=== PATIENT | female | born 1980 | race Caucasian/White ===

== ENCOUNTER 2019-06-15 14:23 | Emergency (ER) | payer OTHER, SELFPAY ==
[2019-06-15 14:41] VITALS: BP 138/96; PULSE 50; RESP 16; TEMP 36.4; O2SAT 100
--- NOTE | 2019-06-15 14:52 | ED.ABDPAIN ---
HPI - Abdominal Pain General Chief Complaint: Abdominal Pain Stated Complaint: Abdominal pain Time Seen by Provider: 06/15/19 14:40 Source: patient Mode of arrival: EMS Limitations: no limitations History of Present Illness HPI narrative: Patient is a 38-year-old female here for evaluation of abdominal pain. She states she has had abdominal pain like this on and off for several months now. She has not seen her primary doctor and has not seen a GI doctor regarding this. She states that initially she thought that was stressed induced. She has had quite a bit of stress in her life recently because her mother is just . She states the symptoms have been worsening over the past week and then especially worsening over the past 3 days with a large increase in the pain over the past 24 hours. States she feels nauseous but is unable to vomit. She states that she feels like she needs to have a bowel movement however does not. No blood in her stool. No prior abdominal surgeries. Has not tried anything for symptoms prior to arrival. No recent antibiotics. No recent travel. No recent camping. Related Data Previous Rx's Medication Instructions Recorded ciprofloxacin HCl 500 mg PO BID 10 Days #20 tab 06/15/19 metronidazole [Flagyl] 500 mg PO TID 10 Days #30 tab 06/15/19 ondansetron 4 mg PO Q6H PRN #14 tab 06/15/19 Allergies Allergy/AdvReac Type Severity Reaction Status Date / Time No Known Drug Allergies Allergy Verified 06/15/19 15:14 Review of Systems Constitutional Constitutional: Denies fatigue and Denies fever(s) Cardiovascular Cardiovascular: Denies chest pain and Denies dyspnea Respiratory Respiratory: Denies dyspnea Gastrointestinal Gastrointestinal: Reports abdominal pain, Reports change in bowel habits, Reports nausea and Denies vomiting Genitourinary Genitourinary: Denies dysuria, Denies flank pain and Denies vaginal discharge Musculoskeletal Musculoskeletal: Denies myalgias and Denies arthralgias Integumentary/Breasts Skin/Breast: Denies rash Neurologic Neurologic: Denies behavioral changes Psychiatric Psychiatric: Reports anxiety and Denies behavioral changes Endocrine Endocrine: Denies fatigue Hematologic/Lymphatic Hematologic/Lymphatic: Denies easy bleeding and Denies easy bruising PFSH Medical History Patient denies medical problems (Inactive) Social History Smoking Status: Former smoker Social History Smoking Status: Former smoker Exam Initial Vital Signs Initial Vital Signs: Vital Signs Temperature 97.6 F 06/15/19 14:41 Pulse Rate 50 L 06/15/19 14:41 Respiratory Rate 16 06/15/19 14:41 Blood Pressure 138/96 H 06/15/19 14:41 Pulse Oximetry 100 06/15/19 14:41 Const General: cooperative, comfortable, well developed and well groomed Orientation: alert, awake and oriented x3 HENMT Head: normal to inspection and normocephalic Resp Effort & Inspection: normal respiratory effort Auscultation: clear to auscultation bilaterally Cardio Rate: regular rate Rhythm: regular rhythm GI Inspection: non-distended Palpation: soft, No firm, No guarding, No rigid and tender (Diffuse tenderness) Back/Spine/Pelvis Back: No CVA tenderness Skin Lesions: no lesions Rashes: no rashes Neuro General: alert and awake Cognition: normal cognition Speech: speech normal Extrem General: normal to inspection and capillary refill normal Psych Appearance: grossly normal and well kempt Course Orders Ordered: ED Orders 06/15/19 13:43 Urine Microscopic Stat 06/15/19 14:55 CT abdomen pelvis w con Stat 06/15/19 15:02 Complete Blood Count AUTO DIFF Stat Comprehensive Metabolic Panel Stat Lipase Stat 06/15/19 15:20 EKG-12 Lead Stat Discontinued Medications Sodium Chloride (Normal Saline 0.9%) 1,000 mls @ 1,000 mls/hr IV BOLUS ONE Stop: 06/15/19 15:52 Last Infusion: 06/15/19 16:49 Dose: 0 mls/hr Documented by: Admin: 06/15/19 15:14 Dose: 1,000 mls/hr Documented by: DEBBIE Morphine Sulfate (Morphine) 4 mg IV NOW ONE Stop: 06/15/19 14:54 Last Admin: 06/15/19 15:14 Dose: 4 mg Documented by: DEBBIE Ondansetron HCl (Zofran) 4 mg IV NOW ONE Stop: 06/15/19 14:54 Last Admin: 06/15/19 15:15 Dose: 4 mg Documented by: DEBBIE Ondansetron HCl (Zofran) 4 mg IV NOW ONE Stop: 06/15/19 16:41 Last Admin: 06/15/19 16:48 Dose: 4 mg Documented by: SHEA Vital Signs Vital signs: Vital Signs - 8 hr 06/15/19 14:41 06/15/19 16:03 06/15/19 17:30 Temperature 97.6 F Pulse Rate 50 L 64 60 Respiratory Rate 16 14 14 Blood Pressure 138/96 H Blood Pressure [Left Arm] 130/81 152/88 H Pulse Oximetry 100 98 98 06/15/19 17:32 Temperature Pulse Rate 71 Respiratory Rate 15 Blood Pressure Blood Pressure [Left Arm] 139/92 H Pulse Oximetry 97 MDM - Abdominal Pain Medical Records Attestation: I reviewed the patient's medical records. Lab Data Attestation: I reviewed the patient's lab results. Result diagrams: 06/15/19 15:02 06/15/19 15:02 Labs: Lab Results 06/15/19 06/15/19 06/15/19 Range/Units 13:43 15:02 15:02 WBC 7.2 (4.5-11.0) X10^3/uL RBC 4.43 (4.0-5.2) X10^6/uL Hgb 14.4 (12.0-16.0) g/dL Hct 41.6 (36-46) % MCV 93.8 (80-100) fL MCH 32.6 (26-34) PG MCHC 34.8 (30-36) % RDW 11.9 (11.6-14.8) % Plt Count 375 (150-400) X10^3/uL Neut % (Auto) 72.9 (50-75) % Lymph % (Auto) 21.2 L (25-40) % [place]enson % (Auto) 4.5 (3-14) % Eos % (Auto) 0.8 L (2-4) % Baso % (Auto) 0.6 (0-2) % Neut # (Auto) 5200 (6503-1991) /uL Lymph # (Auto) 1500 (4749-9370) /uL Dickenson # (Auto) 300 (0-900) /uL Eos # (Auto) 100 (0-450) /uL Baso # (Auto) 0 (0-100) /uL Sodium 141 (137-145) mmol/L Potassium 3.5 (3.4-5.1) mmol/L Chloride 108 H (98-107) mmol/L Carbon Dioxide 21 L (22-32) mmol/L BUN 13 (7-17) mg/dL Creatinine 0.70 (0.52-1.04) mg/dL Estimated GFR > 60.0 (>60) mL/min BUN/Creatinine Ratio 18.6 (6-22) Glucose 106 H (70-100) mg/dL Calcium 10.0 (8.4-10.2) mg/dL Total Bilirubin 0.9 (0.2-1.3) mg/dL AST 14 (14-36) IU/L ALT 10 (9-52) IU/L Alkaline Phosphatase 68 (38-126) U/L Total Protein 7.6 (6.3-8.2) g/dL Albumin 4.6 (3.5-5.0) g/dL Globulin 3.0 (1.7-4.1) g/dL Albumin/Globulin Ratio 1.5 (1.0-2.8) Lipase 141 (23-300) U/L Urine RBC None seen (0-5/HPF) Urine WBC None seen (0-5/HPF) Ur Squamous Epith Cells None seen (0-5/HPF) Urine Bacteria None seen (None) Urine Yeast 0-1/hpf (None) Ur Culture Indicated? Cult not indicated Point of care testing: Point of Care Testing Test Results Negative Urine Dip Bedside Urine Glucose Negative Bedside Urine Bilirubin - Negative Bedside Urine Ketone ++ 40 Urine Specific [place] 1.010 Bedside Urine Occult Blood - Negative Bedside Urine pH 7.5 Bedside Urine Protein - Negative Bedside Urine Urobilinogen - Negative Bedside Urine Nitrite - Negative Bedside Urine Leukocytes - Negative Esterase Imaging Data CT scan - abdomen: Radiologist's impression: Claribel Gonsalesa 38 F [address] [address] [address] Scan Report Signed Patient: Lashay GonsalesDonte#: [id number] : 1980Acct:[id number] Age/Sex: 38 / FDate of Service: 06/15/19 Loc: ED Accession Number: [id number] Procedure: CT abdomen pelvis w con Ordering Provider: Cristobal Olson D.O. PROCEDURE: CT ABDOMEN PELVIS W CON INDICATIONS: generalized abdominal pain TECHNIQUE: After the administration of intravenous contrast, 5 mm thick sections acquired from the diaphragm to the symphysis. 5 mm coronal and sagittal reformats were acquired. For radiation dose reduction, the following was used: automated exposure control, adjustment of mA and/or kV according to patient size. COMPARISON: None. FINDINGS: Image quality: Excellent. ABDOMEN: Lung bases: Lung bases are clear. Heart size is normal. Solid organs: Liver is normal in size and enhancement. Gallbladder wall is not thickened. Biliary system is non dilated. Pancreas enhances normally. The pancreatic duct is visualized and is at the upper limits of normal at 3 mm. No peripancreatic inflammatory changes are seen. Spleen is normal in size and enhancement. No adrenal nodules. Kidneys demonstrate normal size and enhancement, without hydronephrosis. Peritoneum and bowel: Generalized wall thickening is seen throughout the colon. No dilated loops of small bowel are seen. No free air is seen. No free fluid is seen layering within the pelvis, which is considered to be within physiologic limits. Incidental note is made of a normal-appearing appendix. Nodes and vessels: No retroperitoneal or mesenteric adenopathy by size criteria. Aorta and inferior vena cava are normal in size. Miscellaneous: No ventral hernias. PELVIS: Genitourinary: Bladder wall thickness is normal. Miscellaneous: No inguinal hernias or adenopathy. Bones: No suspicious bony lesions. No vertebral body compression fractures. Moderate levoconvex scoliotic curvature is noted. IMPRESSION: Generalized wall thickening is seen in the colon. Please correlate with potential infectious or inflammatory causes of colitis. Ischemia is considered to be highly unlikely, given the age of the patient and the distribution. Incidental note is made of: Moderate levoconvex scoliosis Normal appendix Dictated by: Evaristo Harman M.D. on 06/15/2019 at 15:54 Approved by: Evaristo Harman M.D. on 06/15/2019 at 15:57 ECG Data Attestation: I personally reviewed and interpreted this ECG as follows: Prior ECG tracings: not available for review Interpretation: Sinus rhythm Ventricular rate is 69 Normal QRS Normal QTC No ST T wave changes MDM Narrative Medical decision making narrative: Patient has had symptoms off and on for at least the past several months. She has colitis on her CT scan today. This could potentially be inflammatory in nature however given the severity of her symptoms and the length of her symptoms I feel that a course of antibiotics to see whether not this does not resolve her symptoms is warranted. This may also help with future workup with her primary doctor in potentially a GI doctor. I informed her that she does need to follow up with her primary doctor need to discuss the indications for referral to see GI and also the indications for referral to have a colonoscopy. I also suspect that her symptoms may be stress/anxiety induced. Low suspicion for ischemic changes. Will send home with symptom treatment. She was given return precautions and follow-up instructions. She expressed understanding and agreement plan. Discharge Plan Departure Patient Disposition: Home Clinical Impression: Colitis Discharge Date/Time: 06/15/19 17:44 Instructions: DI for Colitis Activity Restrictions/Additional Instructions: Take the medications as directed. Recommend that you continue the rest of your medications. Eat a bland diet and be sure to stay hydrated. Contact your primary provider to discuss the indications for referral to have a colonoscopy. Return to the emergency department for any new or worsening symptoms Prescriptions: New ondansetron 4 mg tablet,disintegrating 4 mg PO Q6H PRN (Reason: nausea and vomiting) Qty: 14 RF: 0 ciprofloxacin HCl 500 mg tablet 500 mg PO BID 10 Days Qty: 20 RF: 0 metronidazole [Flagyl] 500 mg tablet 500 mg PO TID 10 Days Qty: 30 RF: 0
--- NOTE | 2019-06-15 14:55 | DI.CT.S_ITS ---
PROCEDURE: CT ABDOMEN PELVIS W CON INDICATIONS: generalized abdominal pain TECHNIQUE: After the administration of intravenous contrast, 5 mm thick sections acquired from the diaphragm to the symphysis. 5 mm coronal and sagittal reformats were acquired. For radiation dose reduction, the following was used: automated exposure control, adjustment of mA and/or kV according to patient size. COMPARISON: None. FINDINGS: Image quality: Excellent. ABDOMEN: Lung bases: Lung bases are clear. Heart size is normal. Solid organs: Liver is normal in size and enhancement. Gallbladder wall is not thickened. Biliary system is non dilated. Pancreas enhances normally. The pancreatic duct is visualized and is at the upper limits of normal at 3 mm. No peripancreatic inflammatory changes are seen. Spleen is normal in size and enhancement. No adrenal nodules. Kidneys demonstrate normal size and enhancement, without hydronephrosis. Peritoneum and bowel: Generalized wall thickening is seen throughout the colon. No dilated loops of small bowel are seen. No free air is seen. No free fluid is seen layering within the pelvis, which is considered to be within physiologic limits. Incidental note is made of a normal-appearing appendix. Nodes and vessels: No retroperitoneal or mesenteric adenopathy by size criteria. Aorta and inferior vena cava are normal in size. Miscellaneous: No ventral hernias. PELVIS: Genitourinary: Bladder wall thickness is normal. Miscellaneous: No inguinal hernias or adenopathy. Bones: No suspicious bony lesions. No vertebral body compression fractures. Moderate levoconvex scoliotic curvature is noted. IMPRESSION: Generalized wall thickening is seen in the colon. Please correlate with potential infectious or inflammatory causes of colitis. Ischemia is considered to be highly unlikely, given the age of the patient and the distribution. Incidental note is made of: Moderate levoconvex scoliosis Normal appendix Dictated by: Evaristo Harman M.D. on 06/15/2019 at 15:54 Approved by: Evaristo Harman M.D. on 06/15/2019 at 15:57
[2019-06-15] MEDS: MORPHINE 4 MG/ML INJ IV (15:14)
[2019-06-15] MEDS: SODIUM CHLORIDE 0.9% 1,000 ML 1000 ML IV (15:14)
[2019-06-15] MEDS: ONDANSETRON 4 MG/2 ML INJ IV ×2 (15:15→16:48)
[2019-06-15 15:18] LABS: Add Manual Diff / Slide Review NO; Basophils Absolute Auto 0 /uL (0-100); Basophils Percent Auto 0.6 % (0-2); Eosinophils Absolute Auto 100 /uL (0-450); Eosinophils Percent Auto 0.8 % (2-4); Hematocrit 41.6 % (36-46); Hemoglobin 14.4 g/dL (12.0-16.0); Lymphocytes Absolute Auto 1500 /uL (1100-4500); Lymphocytes Percent Auto 21.2 % (25-40); Mean Corpuscular HGB Conc 34.8 % (30-36); Mean Corpuscular Hemoglobin 32.6 PG (26-34); Mean Corpuscular Volume 93.8 fL (80-100); Monocytes Absolute Auto 300 /uL (0-900); Monocytes Percent Auto 4.5 % (3-14); Neutrophils Absolute Auto 5200 /uL (1500-7000); Neutrophils Percent Auto 72.9 % (50-75); Platelet Count 375 X10^3/uL (150-400); Red Blood Cell Count 4.43 X10^6/uL (4.0-5.2); Red Cell Distribution Width 11.9 % (11.6-14.8); White Blood Cell Count 7.2 X10^3/uL (4.5-11.0)
[2019-06-15 15:30] LABS: Alanine Aminotransferase 10 IU/L (9-52); Albumin 4.6 g/dL (3.5-5.0); Albumin Globulin Ratio 1.5 (1.0-2.8); Alkaline Phosphatase 68 U/L (38-126); Aspartate Aminotransferase 14 IU/L (14-36); BUN Creatinine Ratio 18.6 (6-22); Bilirubin Total 0.9 mg/dL (0.2-1.3); Blood Urea Nitrogen 13 mg/dL (7-17); Carbon Dioxide 21 mmol/L (22-32); Chloride 108 mmol/L (98-107); Estimated Glomerular Filt Rate > 60.0 mL/min (>60); Glucose 106 mg/dL (70-100); HEMOLYSIS < 15 (0-50); Lipase 141 U/L (23-300); Potassium 3.5 mmol/L (3.4-5.1); Sodium 141 mmol/L (137-145); Total Protein 7.6 g/dL (6.3-8.2)
[2019-06-15 16:01] LABS: Bacteria Urine None Seen; RBC Urine None Seen (0-5/HPF); WBC Urine None Seen (0-5/HPF)
[2019-06-15 16:03] VITALS: BP 130/81; PULSE 64; RESP 14; O2SAT 98
[2019-06-15 16:21] LABS: Culture Indicated Urine Cult Not Indicated; Squamous Epithelial Cell Urine None Seen (0-5/HPF)
[2019-06-15 17:30] VITALS: BP 152/88; PULSE 60; RESP 14; O2SAT 98
[2019-06-15 17:32] VITALS: BP 139/92; PULSE 71; RESP 15; O2SAT 97
== END 2019-06-15 17:44 | disposition home or self-care (01) ==
PROVIDERS: Emergency Provider Emergency Medicine
DX: K52.9 Noninfective gastroenteritis and colitis, unspecified (principal)
CPT/HCPCS: 36415; 74177; 80053; 81003; 81015; 81025; 83690; 85025; 93005; 96361; 96374; 96375; 96376; 99283; 99285; J2270; J2405; Q9967

== ENCOUNTER 2019-06-24 19:17 | Emergency (ER) | payer OTHER, SELFPAY ==
[2019-06-24 19:25] VITALS: PULSE 100; RESP 18; TEMP 37.2; O2SAT 100; BMI 20.7
[2019-06-24 19:49] LABS: RBC Urine None Seen (0-5/HPF)
[2019-06-24 19:55] LABS: Bacteria Urine Many (>30); Culture Indicated Urine Cult Not Indicated; Squamous Epithelial Cell Urine 10-30 /HPF (0-5/HPF); WBC Urine 5-10/HPF (0-5/HPF)
[2019-06-24 20:08] LABS: INR 1.1 (0.9-1.3); Prothrombin Time 12.5 SECONDS (10.1-12.7)
[2019-06-24] MEDS: ONDANSETRON 4 MG/2 ML INJ IV ×2 (20:08→22:28)
[2019-06-24 20:11] LABS: Add Manual Diff / Slide Review NO; Basophils Absolute Auto 100 /uL (0-100); Basophils Percent Auto 0.5 % (0-2); Eosinophils Absolute Auto 0 /uL (0-450); Eosinophils Percent Auto 0.2 % (2-4); Hematocrit 42.3 % (36-46); Hemoglobin 14.8 g/dL (12.0-16.0); Lymphocytes Absolute Auto 1200 /uL (1100-4500); Lymphocytes Percent Auto 11.1 % (25-40); Mean Corpuscular Hemoglobin 32.9 PG (26-34); Mean Corpuscular Volume 94.2 fL (80-100); Monocytes Absolute Auto 400 /uL (0-900); Monocytes Percent Auto 3.7 % (3-14); Neutrophils Absolute Auto 9400 /uL (1500-7000); Neutrophils Percent Auto 84.5 % (50-75); PTT Partial Thromboplastin Tim 32 SECONDS (26.4-36.2); Platelet Count 373 X10^3/uL (150-400); Red Blood Cell Count 4.49 X10^6/uL (4.0-5.2); White Blood Cell Count 11.1 X10^3/uL (4.5-11.0)
[2019-06-24 20:12] LABS: Alanine Aminotransferase 18 IU/L (9-52); Albumin 4.6 g/dL (3.5-5.0); Albumin Globulin Ratio 1.7 (1.0-2.8); Alkaline Phosphatase 63 U/L (38-126); Aspartate Aminotransferase 25 IU/L (14-36); BUN Creatinine Ratio 7.5 (6-22); Bilirubin Total 0.8 mg/dL (0.2-1.3); Blood Urea Nitrogen 6 mg/dL (7-17); Calcium 10.1 mg/dL (8.4-10.2); Carbon Dioxide 18 mmol/L (22-32); Chloride 106 mmol/L (98-107); Estimated Glomerular Filt Rate > 60.0 mL/min (>60); Globulin 2.7 g/dL (1.7-4.1); Glucose 102 mg/dL (70-100); HEMOLYSIS < 15 (0-50); Lipase 117 U/L (23-300); Potassium 3.6 mmol/L (3.4-5.1); Sodium 140 mmol/L (137-145); Total Protein 7.3 g/dL (6.3-8.2)
[2019-06-24] MEDS: SODIUM CHLORIDE 0.9% 1,000 ML 1000 ML IV (20:15)
--- NOTE | 2019-06-24 20:20 | ED_ITS ---
HPI - Abdominal Pain General Chief Complaint: Abdominal Pain Stated Complaint: stomach pains, throwing up Time Seen by Provider: 06/24/19 20:17 Source: patient and old records reviewed Mode of arrival: ambulatory Limitations: no limitations History of Present Illness HPI narrative: This is a 38-year-old female comes in with complaint of abdominal pain. Patient states that she has been having symptoms for at least a couple weeks. She states she has had some abdominal discomfort for maybe a couple months since her mother but she thought it was a nervous stomach. About 48 hours before June 15 she had increasing pain with seen here in the emergency department and diagnosed with colitis on CT imaging. Since then her pain is been maybe a little bit more dulled Um. She has been having some mild nausea but taking Zofran and taking Cipro and Flagyl daily. She states over the last 12 hours her pain has increased significantly. She had multiple episodes of vomiting, she complains of sort of generalized pain with no real localized area of discomfort. She has complained of 2 episodes of copious diarrhea but denies any bright red blood or melena. She denies any dysuria frequency urgency or difficulty with urination. She has had sort of shaking chills intermittently. She has a history of migraines, denies any other past surgical history no allergies to medications denies any tobacco alcohol, states she uses marijuana , denies other illict. She lives on [address] with her and son. Related Data Previous Rx's Medication Instructions Recorded ciprofloxacin HCl 500 mg PO BID 10 Days #20 tab 06/15/19 metronidazole [Flagyl] 500 mg PO TID 10 Days #30 tab 06/15/19 ondansetron 4 mg PO Q6H PRN #14 tab 06/15/19 hydrocodone-acetaminophen [Carlisle] 1 tab PO Q6H PRN #5 tab 06/24/19 ondansetron HCl [Zofran] 4 mg PO QID PRN #5 tab 06/24/19 Allergies Allergy/AdvReac Type Severity Reaction Status Date / Time No Known Drug Allergies Allergy Verified 06/15/19 15:14 Review of Systems Review of Systems ROS Unobtainable: All systems reviewed & are unremarkable except as noted in HPI and below Constitutional Constitutional: Reports chills, Denies fever(s), Denies lethargy, Reports malaise and Denies weakness Cardiovascular Cardiovascular: Denies chest pain and Denies dyspnea Respiratory Respiratory: Denies dyspnea Gastrointestinal Gastrointestinal: Reports abdominal pain, Denies melena, Denies hematochezia, Re ports change in bowel habits, Reports change in stool character, Reports diarrhea, Reports nausea and Reports vomiting Genitourinary Genitourinary: Denies hematuria, Denies urinary frequency, Denies dysuria, Denies flank pain, Denies urinary incontinence, Denies urinary hesitancy and De nies urinary urgency Musculoskeletal Musculoskeletal: Denies back pain Integumentary/Breasts Skin/Breast: Denies rash Neurologic Neurologic: Denies weakness [facility] Medical History (Updated 06/24/19 @ 22:07 by Nayely Blair DO) Migraines (Acute) Patient denies medical problems (Inactive) Social History (Updated 06/24/19 @ 21:05 by Nayely Blair DO) marital status: details: Lives [facility] household members: spouse and children Smoking Status: Former smoker alcohol intake: current substance use type: marijuana Social History (Updated 06/24/19 @ 21:05 by Nayely Blair DO) marital status: details: Lives [facility] household members: spouse and children Smoking Status: Former smoker alcohol intake: current substance use type: marijuana Exam Narrative Exam Narrative: GENERAL: Alert and oriented x three, thin, well-appearing female in moderate distress. HEENT: Head normocephalic, atraumatic, EOMI, pupils reactive, face symmetric, moist mucous membranes NECK: Supple, full range of motion CARDIOVASCULAR: Regular rate and rhythm without murmurs, rubs or gallops. RESPIRATORY: Breath sounds equal bilaterally, no wheezes rales or rhonchi. ABDOMEN: Soft, generalized tenderness. Slightly increased in left upper quadrant but this is minimally increased. Normoactive bowel sounds all 4 quadrants. No guarding or rebound, rigidity, no mass. : No right CVA tenderness, very mild left CVA tenderness EXTREMITIES: Normal range of motion, no clubbing or edema. Neurovascularly intact NEUROLOGICAL: Cranial nerves II through XII grossly intact. Moving all extremities SKIN: Warm, dry, no petechiae, no rashes or lesions. Initial Vital Signs Initial Vital Signs: Vital Signs Temperature 98.9 F 06/24/19 19:25 Pulse Rate 100 H 06/24/19 19:25 Respiratory Rate 18 06/24/19 19:25 Pulse Oximetry 100 06/24/19 19:25 Course Orders Ordered: ED Orders 06/24/19 19:40 Urine Microscopic Stat 06/24/19 19:54 Complete Blood Count AUTO DIFF Stat Comprehensive Metabolic Panel Stat Lipase Stat Partial Thromboplastin Time Stat Prothrombin Time INR Stat 06/24/19 19:58 EKG-12 Lead Stat 06/24/19 20:38 CT abdomen pelvis w con Stat Discontinued Medications Hydrocodone Bitart/Acetaminophen (Vicodin Prepack) 1 bottle MISC SEEINSTR ONE Stop: 06/24/19 22:19 Last Admin: 06/24/19 22:28 Dose: 1 bottle Documented by: CHRISTIANE Sodium Chloride (Normal Saline 0.9%) 1,000 mls @ 1,000 mls/hr IV BOLUS ONE Stop: 06/24/19 21:47 Last Infusion: 06/24/19 21:17 Dose: 0 mls/hr Documented by: Admin: 06/24/19 20:15 Dose: 1,000 mls/hr Documented by: CHRISTIANE Ketorolac Tromethamine (Toradol) 30 mg IV NOW ONE Stop: 06/24/19 20:39 Last Admin: 06/24/19 20:53 Dose: 30 mg Documented by: CHRISTIANE Morphine Sulfate (Morphine) 4 mg IV NOW ONE Stop: 06/24/19 21:33 Last Admin: 06/24/19 21:36 Dose: 4 mg Documented by: CHRISTIANE Morphine Sulfate (Morphine) 4 mg IM NOW ONE Stop: 06/24/19 22:18 Last Admin: 06/24/19 22:30 Dose: Not Given Documented by: CHRISTIANE Morphine Sulfate (Morphine) 4 mg IV NOW ONE Stop: 06/24/19 22:30 Last Admin: 06/24/19 22:30 Dose: 4 mg Documented by: CHRISTIANE Ondansetron HCl (Zofran) 4 mg IV NOW ONE Stop: 06/24/19 19:59 Last Admin: 06/24/19 20:08 Dose: 4 mg Documented by: CHRISTIANE Ondansetron HCl (Zofran) 4 mg IV NOW ONE Stop: 06/24/19 22:18 Last Admin: 06/24/19 22:28 Dose: 4 mg Documented by: CHRISTIANE Ondansetron HCl (Zofran Odt Prepack) 1 bottle MISC SEEINSTR ONE Stop: 06/24/19 22:19 Last Admin: 06/24/19 22:28 Dose: 1 bottle Documented by: CHRISTIANE Vital Signs Vital signs: Vital Signs - 8 hr 06/24/19 19:25 06/24/19 21:00 06/24/19 21:37 Temperature 98.9 F Pulse Rate 100 H 90 88 Respiratory Rate 18 20 14 Blood Pressure Blood Pressure [Right Arm] 147/86 H 135/78 Pulse Oximetry 100 100 100 06/24/19 22:00 06/24/19 22:55 Temperature 98.9 F Pulse Rate 89 97 H Respiratory Rate 16 16 Blood Pressure 126/70 Blood Pressure [Right Arm] 139/77 Pulse Oximetry 100 100 MDM - Abdominal Pain Lab Data Attestation: I reviewed the patient's lab results. Result diagrams: 06/24/19 19:54 06/24/19 19:54 Labs: Lab Results 06/24/19 06/24/19 06/24/19 Range/Units 19:40 19:54 19:54 WBC 11.1 H (4.5-11.0) X10^3/uL RBC 4.49 (4.0-5.2) X10^6/uL Hgb 14.8 (12.0-16.0) g/dL Hct 42.3 (36-46) % MCV 94.2 (80-100) fL MCH 32.9 (26-34) PG MCHC 35.0 (30-36) % RDW 12.0 (11.6-14.8) % Plt Count 373 (150-400) X10^3/uL Neut % (Auto) 84.5 H (50-75) % Lymph % (Auto) 11.1 L (25-40) % [place] % (Auto) 3.7 (3-14) % Eos % (Auto) 0.2 L (2-4) % Baso % (Auto) 0.5 (0-2) % Neut # (Auto) 9400 H (4813-1525) /uL Lymph # (Auto) 1200 (3517-5473) /uL [place] # (Auto) 400 (0-900) /uL Eos # (Auto) 0 (0-450) /uL Baso # (Auto) 100 (0-100) /uL PT 12.5 (10.1-12.7) SECONDS INR 1.1 (0.9-1.3) APTT 32 (26.4-36.2) SECONDS Sodium (137-145) mmol/L Potassium (3.4-5.1) mmol/L Chloride (98-107) mmol/L Carbon Dioxide (22-32) mmol/L BUN (7-17) mg/dL Creatinine (0.52-1.04) mg/dL Estimated GFR (>60) mL/min BUN/Creatinine Ratio (6-22) Glucose (70-100) mg/dL Calcium (8.4-10.2) mg/dL Total Bilirubin (0.2-1.3) mg/dL AST (14-36) IU/L ALT (9-52) IU/L Alkaline Phosphatase (38-126) U/L Total Protein (6.3-8.2) g/dL Albumin (3.5-5.0) g/dL Globulin (1.7-4.1) g/dL Albumin/Globulin Ratio (1.0-2.8) Lipase (23-300) U/L Urine RBC None seen (0-5/HPF) Urine WBC 5-10/hpf H (0-5/HPF) Ur Squamous Epith Cells 10-30 /hpf H D (0-5/HPF) Urine Bacteria Many (>30) H (None) Ur Culture Indicated? Cult not indicated 06/24/19 Range/Units 19:54 WBC (4.5-11.0) X10^3/uL RBC (4.0-5.2) X10^6/uL Hgb (12.0-16.0) g/dL Hct (36-46) % MCV (80-100) fL MCH (26-34) PG MCHC (30-36) % RDW (11.6-14.8) % Plt Count (150-400) X10^3/uL Neut % (Auto) (50-75) % Lymph % (Auto) (25-40) % [place] % (Auto) (3-14) % Eos % (Auto) (2-4) % Baso % (Auto) (0-2) % Neut # (Auto) (2332-0199) /uL Lymph # (Auto) (2342-7249) /uL [place] # (Auto) (0-900) /uL Eos # (Auto) (0-450) /uL Baso # (Auto) (0-100) /uL PT (10.1-12.7) SECONDS INR (0.9-1.3) APTT (26.4-36.2) SECONDS Sodium 140 (137-145) mmol/L Potassium 3.6 (3.4-5.1) mmol/L Chloride 106 (98-107) mmol/L Carbon Dioxide 18 L (22-32) mmol/L BUN 6 L (7-17) mg/dL Creatinine 0.80 (0.52-1.04) mg/dL Estimated GFR > 60.0 (>60) mL/min BUN/Creatinine Ratio 7.5 (6-22) Glucose 102 H (70-100) mg/dL Calcium 10.1 (8.4-10.2) mg/dL Total Bilirubin 0.8 (0.2-1.3) mg/dL AST 25 (14-36) IU/L ALT 18 (9-52) IU/L Alkaline Phosphatase 63 (38-126) U/L Total Protein 7.3 (6.3-8.2) g/dL Albumin 4.6 (3.5-5.0) g/dL Globulin 2.7 (1.7-4.1) g/dL Albumin/Globulin Ratio 1.7 (1.0-2.8) Lipase 117 (23-300) U/L Urine RBC (0-5/HPF) Urine WBC (0-5/HPF) Ur Squamous Epith Cells (0-5/HPF) Urine Bacteria (None) Ur Culture Indicated? Point of care testing: Point of Care Testing Test Results Negative Urine Dip Bedside Urine Glucose Negative Bedside Urine Bilirubin - Negative Bedside Urine Ketone +++ 80 Urine Specific [place] 1.015 Bedside Urine Occult Blood - Negative Bedside Urine pH 6.0 Bedside Urine Protein - Negative Bedside Urine Urobilinogen - Negative Bedside Urine Nitrite - Negative Bedside Urine Leukocytes + [address] scan - abdomen: Radiologist's impression: [address] [address] [address] Scan Report Signed Patient: Nubia Gonsales RMR#: [id number] : 1980Acct:[id number] Age/Sex: 38 / FDate of Service: 06/24/19 Loc: ED Accession Number: [id number] Procedure: CT abdomen pelvis w con Ordering Provider: Nayely Blair D.O. PROCEDURE: CT ABDOMEN PELVIS W CON INDICATIONS: abdominal pain worsening, had colitis 06/15/19 TECHNIQUE: After the administration of intravenous contrast, 5 mm thick sections acquired from the diaphragm to the symphysis. 5 mm coronal and sagittal reformats were acquired. For radiation dose reduction, the following was used: automated exposure control, adjustment of mA and/or kV according to patient size. COMPARISON: [facility], CT, CT ABDOMEN PELVIS W CON, 06/15/2019, 16:09. FINDINGS: Image quality: Excellent. ABDOMEN: Lung bases: Lung bases are clear. Heart size is normal. Solid organs: Liver is enlarged with steatosis. Gallbladder is unremarkable. Biliary system is non dilated. Pancreas enhances normally. Spleen is normal in size and enhancement. No adrenal nodules. Kidneys demonstrate normal size and enhancement, without hydronephrosis. Peritoneum and bowel: Bowel loops are nonobstructed. No definitive areas of thickening or inflammatory change are identified.. No free fluid or air. Appendix is unremarkable. Nodes and vessels: No retroperitoneal or mesenteric adenopathy by size criteria. Aorta and inferior vena cava are normal in size. Miscellaneous: Trace fat-containing ventral hernia. PELVIS: Genitourinary: Bladder wall thickness is normal. Involuting suspected hemorrhagic cyst on the left. It is sub-centimeter in size. Miscellaneous: No inguinal hernias or adenopathy. Bones: No suspicious bony lesions. No vertebral body compression fractures. IMPRESSION: 1. Mild hepatomegaly with steatosis. 2. No appreciable areas of colonic thickening or inflammatory change. 3. Appendix is within normal limits. 4. Involuting appearance of likely previous hemorrhagic cyst. Dictated by: Leona Castano M.D. on 06/24/2019 at 21:35 Approved by: Leona Castano M.D. on 06/24/2019 at 21:38 MDM Narrative Medical decision making narrative: Patient comes in with increasing abdominal pain after being on 9 days of oral antibiotics. Patient has had chills but no documented fevers. Heart rate 100, white count is 11 which is increased from her past but not excessively high. Patient's neutrophils are 85%. Her hemogl obin is stable at 14.8, CMP shows a CO2 of 18 reflecting possible acidosis with a low BUN of 6 normal renal function and a glucose of 102 with no other changes to LFTs or lipase. Patient does have leuks but no nitrates in her urine, she does not have any urinary symptoms. CT shows enlarged liver with steatosis bowel loops are not obstructed. No definitive areas of thickening or inflammatory changes identified, no free fluid or air. Appendix is unremarkable no adenopathy by size criteria aorta and inferior vena cava are normal in size. Patient has trace fat containing ventral hernia. Gallbladder wall thickness is normal with involuting suspected hemorrhagic cyst on the left is subcentimeter in size, this may be related some of her symptoms. On recheck patient is Discharge Plan Departure Patient Disposition: Home Clinical Impression: Hepatic steatosis, Hemorrhagic cyst of left ovary Abdominal pain Qualifiers: Abdominal location: generalized Qualified Code(s): R10.84 - Generalized abdominal pain Discharge Date/Time: 06/24/19 22:55 Instructions: DI for Abdominal Pain-Adult Activity Restrictions/Additional Instructions: Follow up with your primary care for recheck in the next 2-3 days. Call for an appointment. Your CT shows improvement of your colitis, hepatic steatosis or fatty liver w hich should be followed by your primary care physician. There is a small fat containing ventral hernia noted. There is also a hemorrhagic cyst on the left ovary that may be the cause of your pain today. Continue home medications as prescribed. Take pain medication as prescribed comes medication can make you sleepy do not drive, perform as activities or make any major decisions while taking it. Return to the emergency department for fevers greater 100.4 F, rapidly worsening pain, persistent vomiting, lightheadedness or passing-out, black or bloody stools, new weakness or other new or concerning symptoms. Prescriptions: New hydrocodone-acetaminophen [Carlisle] 5-325 mg tablet 1 tab PO Q6H PRN (Reason: pain) Qty: 5 RF: 0 ondansetron HCl [Zofran] 4 mg tablet 4 mg PO QID PRN (Reason: nausea and vomiting) Qty: 5 RF: 0 No Action ondansetron 4 mg tablet,disintegrating 4 mg PO Q6H PRN (Reason: nausea and vomiting) Qty: 14 RF: 0 ciprofloxacin HCl 500 mg tablet 500 mg PO BID 10 Days Qty: 20 RF: 0 metronidazole [Flagyl] 500 mg tablet 500 mg PO TID 10 Days Qty: 30 RF: 0 Referrals: Samuel Carmichael MD [Primary Care Provider] -
--- NOTE | 2019-06-24 20:38 | DI.CT.S_ITS ---
PROCEDURE: CT ABDOMEN PELVIS W CON INDICATIONS: abdominal pain worsening, had colitis 06/15/19 TECHNIQUE: After the administration of intravenous contrast, 5 mm thick sections acquired from the diaphragm to the symphysis. 5 mm coronal and sagittal reformats were acquired. For radiation dose reduction, the following was used: automated exposure control, adjustment of mA and/or kV according to patient size. COMPARISON: [facility], CT, CT ABDOMEN PELVIS W CON, 06/15/2019, 16:09. FINDINGS: Image quality: Excellent. ABDOMEN: Lung bases: Lung bases are clear. Heart size is normal. Solid organs: Liver is enlarged with steatosis. Gallbladder is unremarkable. Biliary system is non dilated. Pancreas enhances normally. Spleen is normal in size and enhancement. No adrenal nodules. Kidneys demonstrate normal size and enhancement, without hydronephrosis. Peritoneum and bowel: Bowel loops are nonobstructed. No definitive areas of thickening or inflammatory change are identified.. No free fluid or air. Appendix is unremarkable. Nodes and vessels: No retroperitoneal or mesenteric adenopathy by size criteria. Aorta and inferior vena cava are normal in size. Miscellaneous: Trace fat-containing ventral hernia. PELVIS: Genitourinary: Bladder wall thickness is normal. Involuting suspected hemorrhagic cyst on the left. It is sub-centimeter in size. Miscellaneous: No inguinal hernias or adenopathy. Bones: No suspicious bony lesions. No vertebral body compression fractures. IMPRESSION: 1. Mild hepatomegaly with steatosis. 2. No appreciable areas of colonic thickening or inflammatory change. 3. Appendix is within normal limits. 4. Involuting appearance of likely previous hemorrhagic cyst. Dictated by: Leona Castano M.D. on 06/24/2019 at 21:35 Approved by: Leona Castano M.D. on 06/24/2019 at 21:38
[2019-06-24] MEDS: KETOROLAC 60 MG/2 ML VIAL 30 MG IV (20:53)
[2019-06-24 21:00] VITALS: BP 147/86; PULSE 90; RESP 20; O2SAT 100
[2019-06-24] MEDS: MORPHINE 4 MG/ML INJ IV ×2 (21:36→22:30)
[2019-06-24 21:37] VITALS: BP 135/78; PULSE 88; RESP 14; O2SAT 100
[2019-06-24 22:00] VITALS: BP 139/77; PULSE 89; RESP 16; O2SAT 100
[2019-06-24] MEDS: ONDANSETRON 4 MG ODT PREPACK 1 BOTTLE MISC (22:28)
[2019-06-24] MEDS: HYDROCODONE/ACET 5/325 PREPACK 1 BOTTLE MISC (22:28)
[2019-06-24 22:55] VITALS: BP 126/70; PULSE 97; RESP 16; TEMP 37.2; O2SAT 100
== END 2019-06-24 22:55 | disposition home or self-care (01) ==
PROVIDERS: Emergency Provider Emergency Medicine; PCP Family Medicine
DX: K76.0 Fatty (change of) liver, not elsewhere classified (principal); N83.202 Unspecified ovarian cyst, left side
CPT/HCPCS: 36591; 74177; 80053; 81003; 81015; 81025; 83690; 85025; 85610; 85730; 93005; 93010; 96361; 96374; 96375; 96376; 99283; 99285; J1885; J2270; J2405; Q9967

== ENCOUNTER 2019-11-21 07:47 | Emergency (ER) | payer OTHER, SELFPAY ==
[2019-11-21] VITALS (7 sets, daily range): BP systolic 134–160; BP diastolic 72–107; PULSE 63–84; RESP 13–15; TEMP 37.2; O2SAT 100
--- NOTE | 2019-11-21 08:28 | ED_ITS ---
HPI - Headache General Chief Complaint: Headache Stated Complaint: dehydration,migrane Time Seen by Provider: 11/21/19 08:10 Source: patient Mode of arrival: Wheelchair Limitations: no limitations History of Present Illness HPI Narrative: Patient is a 39-year-old female with history of migraines presenting with worsening headache over the last 1 week along with fever of 102 over last 5 days. She has had body aches nausea chills. Headache has progressively gotten worse. Weakness. Today she says she woke up and had fever of 102 at home he did not take Tylenol or ibuprofen but is currently afebrile here. She was given medication yesterday for a migraine headache which did not help. Typically her migraine headaches over her left temporal area and this 1 has spread all across her forehead and behind her eyes. It hurts to move. She is very sensitive to light. She has some abdominal pain as well. MD Complaint: headache and migraine Related Data Home Medications Medication Instructions Recorded Confirmed albuterol sulfate [ProAir HFA] INHALATION 11/21/19 amitriptyline 50 mg PO BEDTIME 11/21/19 benzonatate 200 mg PO TID 11/21/19 11/21/19 fremanezumab-vfrm [Ajovy] 0 mg SUBCUT QMONTH 11/21/19 gabapentin 600 mg PO BEDTIME 11/21/19 11/21/19 oxycodone 11/21/19 promethazine 11/21/19 promethazine [Promethegan] OH 11/21/19 propranolol 20 mg PO QID 11/21/19 11/21/19 tizanidine 8 - 12 mg PO BEDTIME 11/21/19 11/21/19 tolterodine mg 11/21/19 zolpidem 5 mg PO BEDTIME 11/21/19 11/21/19 Previous Rx's Medication Instructions Recorded hydrocodone-acetaminophen [Crosby] 1 tab PO Q6H PRN #5 tab 06/24/19 Allergies Allergy/AdvReac Type Severity Reaction Status Date / Time No Known Drug Allergies Allergy Verified 06/15/19 15:14 Review of Systems Review of Systems ROS Unobtainable: All systems reviewed & are unremarkable except as noted in HPI and below Constitutional Constitutional: Reports body ache(s), Reports chills and Reports fever(s) Eyes Eyes: Denies change in vision, Denies eye discharge, Denies irritation and Denies loss of vision ENT Ears, Nose, Mouth, and Throat: Denies change in voice, Denies neck pain and Denies sore throat Cardiovascular Cardiovascular: Denies chest pain, Denies irregular heart rhythm, Denies lightheadedness, Denies palpitations, Denies dyspnea, Denies dyspnea on exertion and Denies orthopnea Respiratory Respiratory: Denies cough, Denies dyspnea, Denies dyspnea on exertion and Denies wheezing Gastrointestinal Gastrointestinal: Reports as per HPI, Reports abdominal pain, Denies diarrhea, Reports nausea and Denies vomiting Musculoskeletal Musculoskeletal: Denies neck pain Integumentary/Breasts Skin/Breast: Denies pruritus, Denies erythema, Denies rash and Denies wounds Neurologic Neurologic: Denies loss of vision Endocrine Endocrine: Denies palpitations Allergic/Immunologic Allergic/Immunologic: Denies wheezing Patient History Medical History Migraines (Acute) Patient denies medical problems (Inactive) Social History marital status: details: Lives on [place] household members: spouse and children Smoking Status: Former smoker alcohol intake: current substance use type: marijuana Smoking Status: Former smoker alcohol intake frequency: other Substance Use Type: marijuana Exam Initial Vital Signs Initial Vital Signs: Vital Signs Temperature 99.0 F 11/21/19 08:09 Pulse Rate 84 11/21/19 08:09 Respiratory Rate 13 11/21/19 08:09 Blood Pressure 152/107 H 11/21/19 08:09 Pulse Oximetry 100 11/21/19 08:09 GENERAL: Thin female appears uncomfortable in pain curled in a position HEENT: Head atraumatic,EOMI, pupils reactive, face symmetric, moist mucous membranes NECK: Positive Kernig sign CARDIOVASCULAR: Regular rate and rhythm without murmurs, rubs or gallops. RESPIRATORY: Breath sounds equal bilaterally, no wheezes rales or rhonchi. ABDOMEN: Soft, nontender. Normoactive bowel sounds all 4 quadrants. No guarding or rebound. EXTREMITIES: Normal range of motion, no clubbing or edema. Neurovascularly intact NEUROLOGICAL: Alert and oriented x4.Normal gait and speech. 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 Procedures Lumbar Puncture Time Out Performed: Yes Patient Position: upright Skin Prep: Povidone-Iodine 1% and 0.5% Chlorhexidine/Alcohol Local Anesthetic: lidocaine 1% Amount of anesthesia used (mL): 3 Spinal Needle Gauge: 22G Interspace Used: L3-L4 Fluid Initially Obtained: clear Complications: none Course Orders Ordered: ED Orders 11/21/19 08:36 XR chest 1V Stat 11/21/19 08:40 Influenza A & B (PCR) Stat 11/21/19 08:50 Complete Blood Count AUTO DIFF Stat Comprehensive Metabolic Panel Stat Lactate (Lactic Acid) Stat Lipase Stat Procalcitonin Stat Urine Culture Stat Urine Microscopic Stat 11/21/19 09:02 CT head/brain wo con Stat 11/21/19 09:13 Blood Culture Stat 11/21/19 11:32 Respiratory Panel (Film Array) Stat 11/21/19 11:40 Cell Count w Diff CSF Stat Glucose CSF Stat Total Protein CSF Stat 11/21/19 12:32 Cell Count w Diff CSF Stat 11/21/19 12:50 CSF culture Stat Meningitis Panel (Film Array) Routine Sodium Chloride (Normal Saline 0.9%) 1,000 mls @ 1,000 mls/hr IV CONT BLANCA Last Infusion: 11/21/19 10:19 Dose: 0 mls/hr Documented by: Admin: 11/21/19 09:07 Dose: 1,000 mls/hr Documented by: NEGRITO Discontinued Medications Acetaminophen (Tylenol) 975 mg PO NOW ONE Stop: 11/21/19 12:50 Last Admin: 11/21/19 12:52 Dose: 975 mg Documented by: NEGRITO Diphenhydramine HCl (Benadryl) 25 mg IV NOW ONE Stop: 11/21/19 10:37 Last Admin: 11/21/19 10:44 Dose: 25 mg Documented by: NEGRITO Hydromorphone HCl (Dilaudid) 0.5 mg IV NOW ONE Stop: 11/21/19 09:28 Last Admin: 11/21/19 09:30 Dose: 0.5 mg Documented by: NEGRITO Hydromorphone HCl (Dilaudid) 0.5 mg IV NOW ONE Stop: 11/21/19 10:20 Last Admin: 11/21/19 10:21 Dose: 0.5 mg Documented by: NEGRITO Sodium Chloride (Normal Saline 0.9%) 1,000 mls @ 1,000 mls/hr IV BOLUS ONE Stop: 11/21/19 11:35 Last Infusion: 11/21/19 12:13 Dose: 0 mls/hr Documented by: Admin: 11/21/19 10:40 Dose: 1,000 mls/hr Documented by: NEGRITO Ketorolac Tromethamine (Toradol) 30 mg IV NOW ONE Stop: 11/21/19 09:20 Last Admin: 11/21/19 09:28 Dose: Not Given Documented by: NEGRITO Ondansetron HCl (Zofran) 4 mg IV NOW ONE Stop: 11/21/19 08:37 Last Admin: 11/21/19 09:07 Dose: 4 mg Documented by: NEGRITO Prochlorperazine (Compazine) 10 mg IV NOW ONE Stop: 11/21/19 10:37 Last Admin: 11/21/19 10:40 Dose: 10 mg Documented by: NEGRITO Consultations Consultation #1: Dr. De Leon, infectious disease updated on patient's symptoms and test results including of meningitis panel and chest x-ray. States patient needs to be transferred does not want antifungal medications started in the emergency department it will be started over there. Time: 13:20 Consultation #2: Dr. Leonardo, hospitalist at [facility] has been updated on patient's symptoms test results and infectious disease re commendations. She is happy to accept. Time: 13:38 Vital Signs Vital signs: Vital Signs - 8 hr 11/21/19 08:09 11/21/19 09:42 11/21/19 10:40 Temperature 99.0 F Pulse Rate 84 63 74 Respiratory Rate 13 Blood Pressure 152/107 H 160/107 H Blood Pressure [Right Arm] Pulse Oximetry 100 100 11/21/19 13:00 Temperature Pulse Rate 78 Respiratory Rate 15 Blood Pressure Blood Pressure [Right Arm] 134/72 Pulse Oximetry 100 MDM - Headache Lab Data Attestation: I reviewed the patient's lab results. Result diagrams: 11/21/19 08:50 11/21/19 08:50 Labs: Lab Results 11/21/19 11/21/19 11/21/19 Range/Units 08:40 08:50 08:50 WBC 13.8 H (4.5-11.0) X10^3/uL RBC 4.42 (4.0-5.2) X10^6/uL Hgb 14.3 (12.0-16.0) g/dL Hct 40.5 (36-46) % MCV 91.6 (80-100) fL MCH 32.2 (26-34) PG MCHC 35.2 (30-36) % RDW 11.5 L (11.6-14.8) % Plt Count 437 H (150-400) X10^3/uL Neut % (Auto) 75.5 H (50-75) % Lymph % (Auto) 13.7 L (25-40) % [place] % (Auto) 10.1 (3-14) % Eos % (Auto) 0.1 L (2-4) % Baso % (Auto) 0.6 (0-2) % Neut # (Auto) 22887 H (5966-2667) /uL Lymph # (Auto) 1900 (4861-3727) /uL [place] # (Auto) 1400 H (0-900) /uL Eos # (Auto) 0 (0-450) /uL Baso # (Auto) 100 (0-100) /uL Sodium (137-145) mmol/L Potassium (3.4-5.1) mmol/L Chloride (98-107) mmol/L Carbon Dioxide (22-32) mmol/L BUN (7-17) mg/dL Creatinine (0.52-1.04) mg/dL Estimated GFR (>60) mL/min BUN/Creatinine Ratio (6-22) Glucose (70-100) mg/dL Lactate (0.7-2.1) mmol/L Calcium (8.4-10.2) mg/dL Total Bilirubin (0.2-1.3) mg/dL AST (14-36) IU/L ALT (<35) IU/L Alkaline Phosphatase (38-126) U/L Total Protein (6.3-8.2) g/dL Albumin (3.5-5.0) g/dL Globulin (1.7-4.1) g/dL Albumin/Globulin Ratio (1.0-2.8) Lipase (23-300) U/L Procalcitonin < 0.05 (<0.5) ng/mL Urine RBC (0-5/HPF) Urine WBC (0-5/HPF) Ur Squamous Epith Cells (0-5/HPF) Urine Bacteria (None) Ur Culture Indicated? CSF Tube Number CSF Volume CSF Appearance (Clear) CSF Color (Colorless) CSF WBC (0-5) MONO/uL CSF RBC RBC /uL CSF Mononuclear WBCs % CSF Polynuclear WBCs % CSF Glucose (40-70) mg/dL CSF Total Protein (12-60) mg/dL CSF C.neoform/gat PCR CSF CMV DNA (PCR) CSF Enterovirus (PCR) CSF E. coli (PCR) CSF H. influenzae (PCR) CSF HSV I (PCR) CSF HSV II (PCR) CSF HHV 6 (PCR) CSF L.monocytogenes PCR CSF N. meningitidis PCR CSF Parechovirus (PCR) CSF S. agalactiae (PCR) CSF S. pneumoniae (PCR) CSF VZV (PCR) Chlamy pneumoniae PCR (Not Detect) Adenovirus (PCR) (Not Detect) B.parapertussis DNA PCR (Not Detect) Coronavirus OC43 (PCR) (Not Detect) Coronavirus HKU1 (PCR) (Not Detect) Coronavirus 229E (PCR) (Not Detect) Coronavirus NL63 (PCR) (Not Detect) Human Metapneumovir PCR (Not Detect) Influenza A (RT-PCR) Flu a negative (NEGATIVE) Influenza Type A (PCR) (Not Detect) Influenza B (RT-PCR) Flu b negative (NEGATIVE) Influenza Type B (PCR) (Not Detect) M. pneumoniae (PCR) (Not Detect) Parainfluenza 1 (PCR) (Not Detect) Parainfluenza 2 (PCR) (Not Detect) Parainfluenza 3 (PCR) (Not Detect) Parainfluenza 4 (PCR) (Not Detect) RSV (PCR) (Not Detect) Entero/Rhino (PCR) (Not Detect) 11/21/19 11/21/19 11/21/19 Range/Units 08:50 08:50 08:50 WBC (4.5-11.0) X10^3/uL RBC (4.0-5.2) X10^6/uL Hgb (12.0-16.0) g/dL Hct (36-46) % MCV (80-100) fL MCH (26-34) PG MCHC (30-36) % RDW (11.6-14.8) % Plt Count (150-400) X10^3/uL Neut % (Auto) (50-75) % Lymph % (Auto) (25-40) % [place] % (Auto) (3-14) % Eos % (Auto) (2-4) % Baso % (Auto) (0-2) % Neut # (Auto) (8489-0116) /uL Lymph # (Auto) (1171-1128) /uL [place] # (Auto) (0-900) /uL Eos # (Auto) (0-450) /uL Baso # (Auto) (0-100) /uL Sodium 133 L (137-145) mmol/L Potassium 3.6 (3.4-5.1) mmol/L Chloride 96 L (98-107) mmol/L Carbon Dioxide 24 (22-32) mmol/L BUN 13 (7-17) mg/dL Creatinine 0.80 (0.52-1.04) mg/dL Estimated GFR > 60.0 (>60) mL/min BUN/Creatinine Ratio 16.3 (6-22) Glucose 107 H (70-100) mg/dL Lactate 1.0 (0.7-2.1) mmol/L Calcium 9.7 (8.4-10.2) mg/dL Total Bilirubin 0.7 (0.2-1.3) mg/dL AST 19 (14-36) IU/L ALT 12 (<35) IU/L Alkaline Phosphatase 71 (38-126) U/L Total Protein 8.3 H (6.3-8.2) g/dL Albumin 4.7 (3.5-5.0) g/dL Globulin 3.6 (1.7-4.1) g/dL Albumin/Globulin Ratio 1.3 (1.0-2.8) Lipase (23-300) U/L Procalcitonin (<0.5) ng/mL Urine RBC 10-30/hpf H (0-5/HPF) Urine WBC 5-10/hpf H (0-5/HPF) Ur Squamous Epith Cells 1-5 /hpf D (0-5/HPF) Urine Bacteria Many (>30) H (None) Ur Culture Indicated? Specimen cultured CSF Tube Number CSF Volume CSF Appearance (Clear) CSF Color (Colorless) CSF WBC (0-5) MONO/uL CSF RBC RBC /uL CSF Mononuclear WBCs % CSF Polynuclear WBCs % CSF Glucose (40-70) mg/dL CSF Total Protein (12-60) mg/dL CSF C.neoform/gat PCR CSF CMV DNA (PCR) CSF Enterovirus (PCR) CSF E. coli (PCR) CSF H. influenzae (PCR) CSF HSV I (PCR) CSF HSV II (PCR) CSF HHV 6 (PCR) CSF L.monocytogenes PCR CSF N. meningitidis PCR CSF Parechovirus (PCR) CSF S. agalactiae (PCR) CSF S. pneumoniae (PCR) CSF VZV (PCR) Chlamy pneumoniae PCR (Not Detect) Adenovirus (PCR) (Not Detect) B.parapertussis DNA PCR (Not Detect) Coronavirus OC43 (PCR) (Not Detect) Coronavirus HKU1 (PCR) (Not Detect) Coronavirus 229E (PCR) (Not Detect) Coronavirus NL63 (PCR) (Not Detect) Human Metapneumovir PCR (Not Detect) Influenza A (RT-PCR) (NEGATIVE) Influenza Type A (PCR) (Not Detect) Influenza B (RT-PCR) (NEGATIVE) Influenza Type B (PCR) (Not Detect) M. pneumoniae (PCR) (Not Detect) Parainfluenza 1 (PCR) (Not Detect) Parainfluenza 2 (PCR) (Not Detect) Parainfluenza 3 (PCR) (Not Detect) Parainfluenza 4 (PCR) (Not Detect) RSV (PCR) (Not Detect) Entero/Rhino (PCR) (Not Detect) 11/21/19 11/21/19 11/21/19 Range/Units 08:50 11:32 11:40 WBC (4.5-11.0) X10^3/uL RBC (4.0-5.2) X10^6/uL Hgb (12.0-16.0) g/dL Hct (36-46) % MCV (80-100) fL MCH (26-34) PG MCHC (30-36) % RDW (11.6-14.8) % Plt Count (150-400) X10^3/uL Neut % (Auto) (50-75) % Lymph % (Auto) (25-40) % [place] % (Auto) (3-14) % Eos % (Auto) (2-4) % Baso % (Auto) (0-2) % Neut # (Auto) (9129-5526) /uL Lymph # (Auto) (5945-9439) /uL [place] # (Auto) (0-900) /uL Eos # (Auto) (0-450) /uL Baso # (Auto) (0-100) /uL Sodium (137-145) mmol/L Potassium (3.4-5.1) mmol/L Chloride (98-107) mmol/L Carbon Dioxide (22-32) mmol/L BUN (7-17) mg/dL Creatinine (0.52-1.04) mg/dL Estimated GFR (>60) mL/min BUN/Creatinine Ratio (6-22) Glucose (70-100) mg/dL Lactate (0.7-2.1) mmol/L Calcium (8.4-10.2) mg/dL Total Bilirubin (0.2-1.3) mg/dL AST (14-36) IU/L ALT (<35) IU/L Alkaline Phosphatase (38-126) U/L Total Protein (6.3-8.2) g/dL Albumin (3.5-5.0) g/dL Globulin (1.7-4.1) g/dL Albumin/Globulin Ratio (1.0-2.8) Lipase 123 (23-300) U/L Procalcitonin (<0.5) ng/mL Urine RBC (0-5/HPF) Urine WBC (0-5/HPF) Ur Squamous Epith Cells (0-5/HPF) Urine Bacteria (None) Ur Culture Indicated? CSF Tube Number 1 CSF Volume 1.0 ml CSF Appearance Clear (Clear) CSF Color Colorless (Colorless) CSF WBC 52.5 H (0-5) MONO/uL CSF RBC 3 RBC /uL CSF Mononuclear WBCs 67 % CSF Polynuclear WBCs 33 % CSF Glucose 45 (40-70) mg/dL CSF Total Protein 62 H (12-60) mg/dL CSF C.neoform/gat PCR Cancelled CSF CMV DNA (PCR) Cancelled CSF Enterovirus (PCR) Cancelled CSF E. coli (PCR) Cancelled CSF H. influenzae (PCR) Cancelled CSF HSV I (PCR) Cancelled CSF HSV II (PCR) Cancelled CSF HHV 6 (PCR) Cancelled CSF L.monocytogenes PCR Cancelled CSF N. meningitidis PCR Cancelled CSF Parechovirus (PCR) Cancelled CSF S. agalactiae (PCR) Cancelled CSF S. pneumoniae (PCR) Cancelled CSF VZV (PCR) Cancelled Chlamy pneumoniae PCR Not detected (Not Detect) Adenovirus (PCR) Not detected (Not Detect) B.parapertussis DNA PCR Not detected (Not Detect) Coronavirus OC43 (PCR) Not detected (Not Detect) Coronavirus HKU1 (PCR) Not detected (Not Detect) Coronavirus 229E (PCR) Not detected (Not Detect) Coronavirus NL63 (PCR) Not detected (Not Detect) Human Metapneumovir PCR Not detected (Not Detect) Influenza A (RT-PCR) (NEGATIVE) Influenza Type A (PCR) Not detected (Not Detect) Influenza B (RT-PCR) (NEGATIVE) Influenza Type B (PCR) Not detected (Not Detect) M. pneumoniae (PCR) Not detected (Not Detect) Parainfluenza 1 (PCR) Not detected (Not Detect) Parainfluenza 2 (PCR) Not detected (Not Detect) Parainfluenza 3 (PCR) Not detected (Not Detect) Parainfluenza 4 (PCR) Not detected (Not Detect) RSV (PCR) Not detected (Not Detect) Entero/Rhino (PCR) Not detected (Not Detect) 11/21/19 11/21/19 Range/Units 12:32 12:50 WBC (4.5-11.0) X10^3/uL RBC (4.0-5.2) X10^6/uL Hgb (12.0-16.0) g/dL Hct (36-46) % MCV (80-100) fL MCH (26-34) PG MCHC (30-36) % RDW (11.6-14.8) % Plt Count (150-400) X10^3/uL Neut % (Auto) (50-75) % Lymph % (Auto) (25-40) % [place] % (Auto) (3-14) % Eos % (Auto) (2-4) % Baso % (Auto) (0-2) % Neut # (Auto) (7356-3472) /uL Lymph # (Auto) (9738-4484) /uL [place] # (Auto) (0-900) /uL Eos # (Auto) (0-450) /uL Baso # (Auto) (0-100) /uL Sodium (137-145) mmol/L Potassium (3.4-5.1) mmol/L Chloride (98-107) mmol/L Carbon Dioxide (22-32) mmol/L BUN (7-17) mg/dL Creatinine (0.52-1.04) mg/dL Estimated GFR (>60) mL/min BUN/Creatinine Ratio (6-22) Glucose (70-100) mg/dL Lactate (0.7-2.1) mmol/L Calcium (8.4-10.2) mg/dL Total Bilirubin (0.2-1.3) mg/dL AST (14-36) IU/L ALT (<35) IU/L Alkaline Phosphatase (38-126) U/L Total Protein (6.3-8.2) g/dL Albumin (3.5-5.0) g/dL Globulin (1.7-4.1) g/dL Albumin/Globulin Ratio (1.0-2.8) Lipase (23-300) U/L Procalcitonin (<0.5) ng/mL Urine RBC (0-5/HPF) Urine WBC (0-5/HPF) Ur Squamous Epith Cells (0-5/HPF) Urine Bacteria (None) Ur Culture Indicated? CSF Tube Number 3 CSF Volume 1.0 ml CSF Appearance Clear (Clear) CSF Color Colorless (Colorless) CSF WBC 72.5 H (0-5) MONO/uL CSF RBC 0 RBC /uL CSF Mononuclear WBCs % CSF Polynuclear WBCs % CSF Glucose (40-70) mg/dL CSF Total Protein (12-60) mg/dL CSF C.neoform/gat PCR Detected H CSF CMV DNA (PCR) Not detected CSF Enterovirus (PCR) Not detected CSF E. coli (PCR) Not detected CSF H. influenzae (PCR) Not detected CSF HSV I (PCR) Not detected CSF HSV II (PCR) Not detected CSF HHV 6 (PCR) Not detected CSF L.monocytogenes PCR Not detected CSF N. meningitidis PCR Not detected CSF Parechovirus (PCR) Not detected CSF S. agalactiae (PCR) Not detected CSF S. pneumoniae (PCR) Not detected CSF VZV (PCR) Not detected Chlamy pneumoniae PCR (Not Detect) Adenovirus (PCR) (Not Detect) B.parapertussis DNA PCR (Not Detect) Coronavirus OC43 (PCR) (Not Detect) Coronavirus HKU1 (PCR) (Not Detect) Coronavirus 229E (PCR) (Not Detect) Coronavirus NL63 (PCR) (Not Detect) Human Metapneumovir PCR (Not Detect) Influenza A (RT-PCR) (NEGATIVE) Influenza Type A (PCR) (Not Detect) Influenza B (RT-PCR) (NEGATIVE) Influenza Type B (PCR) (Not Detect) M. pneumoniae (PCR) (Not Detect) Parainfluenza 1 (PCR) (Not Detect) Parainfluenza 2 (PCR) (Not Detect) Parainfluenza 3 (PCR) (Not Detect) Parainfluenza 4 (PCR) (Not Detect) RSV (PCR) (Not Detect) Entero/Rhino (PCR) (Not Detect) Point of Care Testing Test Results Negative Urine Dip Bedside Urine Glucose Negative Bedside Urine Bilirubin - Negative Bedside Urine Ketone +++ 80 Urine Specific [place] 1.025 Bedside Urine Occult Blood +++ Bedside Urine pH 6.0 Bedside Urine Protein +/- 15 Bedside Urine Urobilinogen +/- 1mg Bedside Urine Nitrite - Negative Bedside Urine Leukocytes +/- [address] scan - head: Radiologist's Impression: PROCEDURE: CT HEAD/BRAIN WO CON INDICATIONS: persistant headache TECHNIQUE: Noncontrast 4.5 mm thick angled axial sections acquired from the foramen magnum to the vertex, with coronal and sagittal reformats. For radiation dose reduction, the following was used: automated exposure control, adjustment of mA and/or kV according to patient size. COMPARISON: None. FINDINGS: Image quality: Excellent. CSF spaces: Basal cisterns are patent. No extra-axial fluid collections. Ventricles are normal in size and shape. Brain: No midline shift. No intracranial masses or hemorrhage. Delgado-white matter interface is normal. Small incidental calcified right parafalcine meningioma measuring 1.3 x 0.5 cm with no associated mass effect or vasogenic edema. Skull and face: Calvarium and visualized facial bones are intact, without suspicious lesions. Sinuses: Visualized sinuses and mastoids are clear. IMPRESSION: 1. Incidental small right parafalcine meningioma. 2. Otherwise unremarkable head CT with no evidence of acute stroke, hemorrhage, or intra-axial mass. Dictated by: Andrei West M.D. on 11/21/2019 at 9:13 Approved by: Andrei West M.D. on 11/21/2019 at 9:15 Chest x-ray: Radiologist's Impression: PROCEDURE: XR CHEST 1V INDICATIONS: fever TECHNIQUE: One view of the chest was acquired. COMPARISON: None. FINDINGS: Surgical changes and devices: None. Lungs and pleura: Ill-defined density to the left of the aortic knob in the left suprahilar region with retraction of the left hilum suggested. No pleural effusions or pneumothorax. Mediastinum: Mediastinal contours appear normal. Heart size is normal. Bones and chest wall: No suspicious bony lesions. Overlying soft tissues appear unremarkable. IMPRESSION: Question medial left upper lobe mass. Recommend chest CT with contrast. Comment: Findings were discussed with Dr. Marin at the time of study dictation. Dictated by: Andrei West M.D. on 11/21/2019 at 9:15 [facility] Narrative Medical decision making narrative: The patient is still having significant headache with mild leukocytosis. She refuses Toradol, she was told not to take any NSAIDs due to colitis back in the fall. So she is given Dilaudid which is only helped some. CT does show a small meningioma she said she has had MRIs in the past. Apparently other people have had similar symptoms headache and fevers. She does have exacerbated headache with in the position. Discussed with her need to rule out meningitis and need lumbar puncture. 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 With discussed case with Infectious Disease at [facility]. Patient will be transferred over there at this time no antifungals to be started in the emergency department. Patient is agreeable to transfer her pain is improved but she is still having significant headache. She does not appear septic. Critical Care Time Critical Care Time Critical Care Time: Yes Total Critical Care Time: 45 Attestation: The high probability of a clinically significant, sudden or life threatening deterioration of the neurovascular system(s) required my full and direct attention, intervention and personal management. The aggregate critical care time was [45] minutes. This time is in addition to time spent performing reported procedures but includes the following: [x] Data Review and interpretation [x] Patient assessment and monitoring of vital signs [x] Documentation [x] Medication orders and management Discharge Plan Departure [facility] Clinical Impression: Cryptococcal meningitis Prescriptions: No Action hydrocodone-acetaminophen [Crosby] 5-325 mg tablet 1 tab PO Q6H PRN (Reason: pain) Qty: 5 RF: 0 tizanidine 4 mg tablet 8 - 12 mg PO BEDTIME RF: 0 benzonatate 200 mg capsule 200 mg PO TID RF: 0 promethazine [Promethegan] 25 mg suppository [place] RF: 0 amitriptyline 50 mg tablet 50 mg PO BEDTIME RF: 0 tolterodine 2 mg tablet RF: 0 promethazine 25 mg tablet RF: 0 gabapentin 300 mg capsule 600 mg PO BEDTIME RF: 0 zolpidem 5 mg tablet 5 mg PO BEDTIME RF: 0 albuterol sulfate [ProAir HFA] 90 mcg/actuation HFA aerosol inhaler INHALATION RF: 0 propranolol 20 mg tablet 20 mg PO QID RF: 0 oxycodone 5 mg tablet RF: 0 Ajovy 225 mg/1.5 mL syringe 0 mg SUBCUT QMONTH RF: 0 Referrals: Love Cleaning ARNP [Primary Care Provider] -
--- NOTE | 2019-11-21 08:36 | DI.RAD.S_ITS ---
PROCEDURE: XR CHEST 1V INDICATIONS: fever TECHNIQUE: One view of the chest was acquired. COMPARISON: None. FINDINGS: Surgical changes and devices: None. Lungs and pleura: Ill-defined density to the left of the aortic knob in the left suprahilar region with retraction of the left hilum suggested. No pleural effusions or pneumothorax. Mediastinum: Mediastinal contours appear normal. Heart size is normal. Bones and chest wall: No suspicious bony lesions. Overlying soft tissues appear unremarkable. IMPRESSION: Question medial left upper lobe mass. Recommend chest CT with contrast. Comment: Findings were discussed with Dr. Marin at the time of study dictation. Dictated by: Andrei West M.D. on 11/21/2019 at 9:15 Approved by: Andrei West M.D. on 11/21/2019 at 9:19
--- NOTE | 2019-11-21 09:02 | DI.CT.S_ITS ---
PROCEDURE: CT HEAD/BRAIN WO CON INDICATIONS: persistant headache TECHNIQUE: Noncontrast 4.5 mm thick angled axial sections acquired from the foramen magnum to the vertex, with coronal and sagittal reformats. For radiation dose reduction, the following was used: automated exposure control, adjustment of mA and/or kV according to patient size. COMPARISON: None. FINDINGS: Image quality: Excellent. CSF spaces: Basal cisterns are patent. No extra-axial fluid collections. Ventricles are normal in size and shape. Brain: No midline shift. No intracranial masses or hemorrhage. Delgado-white matter interface is normal. Small incidental calcified right parafalcine meningioma measuring 1.3 x 0.5 cm with no associated mass effect or vasogenic edema. Skull and face: Calvarium and visualized facial bones are intact, without suspicious lesions. Sinuses: Visualized sinuses and mastoids are clear. IMPRESSION: 1. Incidental small right parafalcine meningioma. 2. Otherwise unremarkable head CT with no evidence of acute stroke, hemorrhage, or intra-axial mass. Dictated by: Andrei West M.D. on 11/21/2019 at 9:13 Approved by: Andrei West M.D. on 11/21/2019 at 9:15
[2019-11-21 09:07] LABS: Add Manual Diff / Slide Review NO; Bacteria Urine Many (>30); Basophils Absolute Auto 100 /uL (0-100); Basophils Percent Auto 0.6 % (0-2); Culture Indicated Urine Specimen Cultured; Eosinophils Absolute Auto 0 /uL (0-450); Eosinophils Percent Auto 0.1 % (2-4); Hematocrit 40.5 % (36-46); Hemoglobin 14.3 g/dL (12.0-16.0); Lymphocytes Absolute Auto 1900 /uL (1100-4500); Lymphocytes Percent Auto 13.7 % (25-40); Mean Corpuscular HGB Conc 35.2 % (30-36); Mean Corpuscular Hemoglobin 32.2 PG (26-34); Mean Corpuscular Volume 91.6 fL (80-100); Monocytes Absolute Auto 1400 /uL (0-900); Monocytes Percent Auto 10.1 % (3-14); Neutrophils Absolute Auto 10400 /uL (1500-7000); Neutrophils Percent Auto 75.5 % (50-75); Platelet Count 437 X10^3/uL (150-400); RBC Urine 10-30/HPF (0-5/HPF); Red Blood Cell Count 4.42 X10^6/uL (4.0-5.2); Red Cell Distribution Width 11.5 % (11.6-14.8); Squamous Epithelial Cell Urine 1-5 /HPF (0-5/HPF); WBC Urine 5-10/HPF (0-5/HPF); White Blood Cell Count 13.8 X10^3/uL (4.5-11.0)
[2019-11-21] MEDS: SODIUM CHLORIDE 0.9% 1,000 ML 1000 ML IV ×2 (09:07→10:40)
[2019-11-21] MEDS: ONDANSETRON 4 MG/2 ML INJ IV (09:07)
[2019-11-21 09:19] LABS: Alanine Aminotransferase 12 IU/L (<35); Albumin 4.7 g/dL (3.5-5.0); Albumin Globulin Ratio 1.3 (1.0-2.8); Alkaline Phosphatase 71 U/L (38-126); Aspartate Aminotransferase 19 IU/L (14-36); BUN Creatinine Ratio 16.3 (6-22); Bilirubin Total 0.7 mg/dL (0.2-1.3); Blood Urea Nitrogen 13 mg/dL (7-17); Calcium 9.7 mg/dL (8.4-10.2); Carbon Dioxide 24 mmol/L (22-32); Chloride 96 mmol/L (98-107); Estimated Glomerular Filt Rate > 60.0 mL/min (>60); Globulin 3.6 g/dL (1.7-4.1); Glucose 107 mg/dL (70-100); HEMOLYSIS < 15 (0-50); Lipase 123 U/L (23-300); Potassium 3.6 mmol/L (3.4-5.1); Sodium 133 mmol/L (137-145); Total Protein 8.3 g/dL (6.3-8.2)
[2019-11-21 09:22] LABS: Influenza A - CEPHEID Flu A NEGATIVE (NEGATIVE); Influenza B - CEPHEID Flu B NEGATIVE (NEGATIVE)
[2019-11-21] MEDS: HYDROMORPHONE 0.5 MG INJ IV ×2 (09:30→10:21)
[2019-11-21 09:33] LABS: Procalcitonin < 0.05 ng/mL (<0.5)
[2019-11-21] MEDS: PROCHLORPERAZINE 10 MG/2 ML VIAL IV (10:40)
[2019-11-21] MEDS: diphenhydrAMINE 50 MG/ML VIAL 25 MG IV (10:44)
[2019-11-21 12:05] LABS: Glucose CSF 45 mg/dL (40-70); Total Protein CSF 62 mg/dL (12-60)
[2019-11-21 12:24] LABS: Appearance CSF Clear (Clear); CSF Tube Number 1; CSF Tube Volume 1.0 mL; Color CSF Colorless (Colorless)
[2019-11-21 12:25] LABS: Red Blood Cell CSF 3 RBC /uL; White Blood Cell CSF 52.5 MONO/uL (0-5)
[2019-11-21 12:48] LABS: Adenovirus Not Detected (Not Detect); Bordetella pertussis Not Detected (Not Detect); Chlamydophila pneumoniae Not Detected (Not Detect); Coronavirus 229E Not Detected (Not Detect); Coronavirus HKU1 Not Detected (Not Detect); Coronavirus NL 63 Not Detected (Not Detect); Coronavirus OC43 Not Detected (Not Detect); Human Metapneumovirus Not Detected (Not Detect); Human Rhinovirus/Enterovirus Not Detected (Not Detect); Influenza A Not Detected (Not Detect); Influenza B Not Detected (Not Detect); Mycoplasma pneumoniae Not Detected (Not Detect); Parainfluenza Virus 1 Not Detected (Not Detect); Parainfluenza Virus 2 Not Detected (Not Detect); Parainfluenza Virus 3 Not Detected (Not Detect); Parainfluenza Virus 4 Not Detected (Not Detect); Respiratory Syncytial Virus Not Detected (Not Detect)
[2019-11-21] MEDS: ACETAMINOPHEN 325 MG TABLET 975 MG PO (12:52)
[2019-11-21 13:05] LABS: Appearance CSF Clear (Clear); CSF Tube Number 3; CSF Tube Volume 1.0 mL; Color CSF Colorless (Colorless)
[2019-11-21 13:07] LABS: Red Blood Cell CSF 0 RBC /uL; White Blood Cell CSF 72.5 MONO/uL (0-5)
[2019-11-21 13:09] LABS: Cryptococcus neoformans/gattii Detected (Not Detect); Enterovirus Not Detected (Not Detect); Escherichia coli K1 Not Detected (Not Detect); Haemophilus influenzae Not Detected (Not Detect); Herpes simplex virus 1 Not Detected (Not Detect); Herpes simplex virus 2 Not Detected (Not Detect); Human herpesvirus 6 Not Detected (Not Detect); Human parechovirus Not Detected (Not Detect); Listeria monocytogenes Not Detected (Not Detect); Neisseria meningitidis Not Detected (Not Detect); Streptococcus agalactiae Not Detected (Not Detect); Streptococcus pneumoniae Not Detected (Not Detect); Varicella Zoster Virus Not Detected (Not Detecte)
[2019-11-21 13:18] LABS: Mononuclear WBC CSF 67 %; Polynuclear WBC CSF 33 %
[2019-11-21 14:10] LABS: Mononuclear WBC CSF 65 %; Polynuclear WBC CSF 35 %
== END 2019-11-21 15:20 | disposition short-term general hospital (02) ==
PROVIDERS: Emergency Provider Emergency Medicine; PCP Nurse Practitioner Family
DX: B45.1 Cerebral cryptococcosis (principal)
CPT/HCPCS: 36415; 62270; 70450; 71045; 80053; 81003; 81015; 81025; 82945; 83605; 83690; 84145; 84157; 85025; 87040; 87070; 87077; 87086; 87205; 87502; 87633; 87798; 89051; 99285; 99291; J0780; J1170; J1200; J1885; J2405

== ENCOUNTER 2021-03-14 19:24 | Emergency (ER) | payer OTHER, SELFPAY ==
[2021-03-14 19:30] VITALS: BP 160/93; PULSE 72; RESP 18; TEMP 36.9; O2SAT 99; BMI 20.8
[2021-03-14 20:06] LABS: Alanine Aminotransferase 11 IU/L (<35); Albumin Globulin Ratio 1.4 (1.0-2.8); Alkaline Phosphatase 45 U/L (38-126); Aspartate Aminotransferase 24 IU/L (14-36); BUN Creatinine Ratio 30.1 (6-22); Bilirubin Total 0.2 mg/dL (0.2-1.3); Blood Urea Nitrogen 22 mg/dL (7-17); Calcium 9.5 mg/dL (8.4-10.2); Carbon Dioxide 26 mmol/L (22-32); Chloride 105 mmol/L (98-107); Estimated Glomerular Filt Rate > 60.0 mL/min (>60); Globulin 2.9 g/dL (1.7-4.1); Glucose 85 mg/dL (70-100); HEMOLYSIS 24 (0-50); Sodium 138 mmol/L (137-145); Total Protein 6.9 g/dL (6.3-8.2)
[2021-03-14 20:11] LABS: Basophils Absolute Auto 100 /uL (0-100); Basophils Percent Auto 1.2 % (0-2); Eosinophils Absolute Auto 500 /uL (0-450); Eosinophils Percent Auto 5.6 % (2-4); Hematocrit 37.9 % (36-46); Hemoglobin 13.2 g/dL (12.0-16.0); Lymphocytes Absolute Auto 3400 /uL (1100-4500); Lymphocytes Percent Auto 39.9 % (25-40); Mean Corpuscular HGB Conc 34.9 % (30-36); Mean Corpuscular Hemoglobin 32.7 PG (26-34); Mean Corpuscular Volume 93.8 fL (80-100); Monocytes Absolute Auto 600 /uL (0-900); Monocytes Percent Auto 6.9 % (3-14); Neutrophils Absolute Auto 4000 /uL (1500-7000); Neutrophils Percent Auto 46.4 % (50-75); Red Blood Cell Count 4.04 X10^6/uL (4.0-5.2); Red Cell Distribution Width 12.1 % (11.6-14.8); White Blood Cell Count 8.5 X10^3/uL (4.5-11.0)
--- NOTE | 2021-03-14 20:16 | DI.US.S_ITS ---
PROCEDURE: US PELVIC COMPLETE INDICATIONS: DUB TECHNIQUE: Real-time scanning was performed of the pelvic organs, with image documentation. Additional endovaginal scanning was necessary due to incomplete visualization of the adnexal and endometrial structures by transabdominal scanning. COMPARISON: [facility], US, US PELVIC COMPLETE WITH TRANSVAGINAL, 01/10/2020, 12:24. FINDINGS: Uterus: Uterus is normal in size at 9.6 x 4.9 x 5.7 cm. The endometrium measures 12.1 mm in combined thickness. Uterus has normal echotexture. Ovaries: Right ovary measures 3.2 x 2.0 x 2.6 centimeters. There is a 1.8 x 1.7 x 1.8 centimeter simple appearing cyst in the right ovary. Left ovary measures 1.9 x 1.4 x 1.7 centimeters. Left ovary is sonographically normal. Doppler evaluation demonstrates normal vascular flow in the ovaries. Other: No pathologic free abdominal or pelvic fluid. IMPRESSION: 1. Uterus is sonographically normal. 2. 1.8 x 1.7 x 1.8 centimeter simple right ovarian cyst. 3. Left ovary is sonographically normal. Dictated by: Jalyn Iyer MD, PhD on 03/14/2021 at 21:26 Approved by: Jalyn Iyer MD, PhD on 03/14/2021 at 21:28
[2021-03-14 20:18] LABS: Add Manual Diff / Slide Review SLIDE REVIEW
[2021-03-14 20:24] LABS: Pregnancy Test Serum,Qual Negative (Negative)
[2021-03-14 20:47] LABS: Platelet Count 125 X10^3/uL (150-400); RBC Morphology Normal Morphology
--- NOTE | 2021-03-14 20:47 | ED.FEMALEGU ---
HPI - Female Genitourinary General Chief complaint: Vaginal Bleeding Stated complaint: Excessive Bleeding Time Seen by Provider: 03/14/21 20:16 Source: patient Mode of arrival: Ambulatory Limitations: no limitations History of Present Illness HPI Narrative: Patient is a 40-year-old female who presents with vaginal bleeding . She had a normal menstrual cycle a week ago and then started having persistent heavy bleeding. She she is going through 1 pad every 2 hours for the past week. She is having intense cramping. She has some mild lightheadedness but no passing out. She actually has had abnormal vaginal bleeding in past but it has been a little while she says it has not been like this before. Related Data Home Medications Medication Instructions Recorded Confirmed albuterol sulfate [ProAir HFA] INHALATION 11/21/19 amitriptyline 50 mg PO BEDTIME 11/21/19 benzonatate 200 mg PO TID 11/21/19 11/21/19 fremanezumab-vfrm [Ajovy] 0 mg SUBCUT QMONTH 11/21/19 gabapentin 600 mg PO BEDTIME 11/21/19 11/21/19 oxycodone 11/21/19 promethazine 11/21/19 promethazine [Promethegan] [place] 11/21/19 propranolol 20 mg PO QID 11/21/19 11/21/19 tizanidine 8 - 12 mg PO BEDTIME 11/21/19 11/21/19 tolterodine mg 11/21/19 zolpidem 5 mg PO BEDTIME 11/21/19 11/21/19 Previous Rx's Medication Instructions Recorded hydrocodone-acetaminophen [[place]] 1 tab PO Q6H PRN #5 tab 06/24/19 medroxyprogesterone 10 mg PO DAILY #90 tab 03/14/21 Allergies Allergy/AdvReac Type Severity Reaction Status Date / Time No Known Drug Allergies Allergy Verified 06/15/19 15:14 Review of Systems Review of Systems Narrative: GENERAL: Denies chills, fatigue, malaise, fever, sweats, travel HEENT: Denies sinus pain, ear pain, sore throat, difficulty swallowing, neck pain RESPIRATORY: Denies dyspnea, cough, wheezing, hemoptysis, sputum. CARDIOVASCULAR: Denies chest pain, palpitations, orthopnea, edema GASTROINTESTINAL: Denies nausea, vomiting, abdominal pain, diarrhea, constipation, melena. [employer]ER see HPI : Denies dysuria, frequency, incontinence, hematuria, urinary retention, flank pain. MUSCULOSKELETAL: Denies weakness, joint pain, or bony pain SKIN: No rash, no erythema, no pruritus NEUROLOGIC: Denies weakness, dizziness, headache, numbness, change in speech, confusion PSYCHIATRIC: No concerning psychosocial issues. 12 point review of systems is negative except for those stated above and HPI Patient History Medical History Migraines Patient denies medical problems alcohol intake frequency: other Substance Use Type: marijuana Exam Initial Vital Signs Initial Vital Signs: Vital Signs Temperature 98.5 F 03/14/21 19:30 Pulse Rate 72 03/14/21 19:30 Respiratory Rate 18 03/14/21 19:30 Blood Pressure 160/93 H 03/14/21 19:30 Pulse Oximetry 99 03/14/21 19:30 GENERAL: Well-appearing, well-nourished and in no acute distress. HEENT: Head atraumatic,EOMI, pupils reactive, face symmetric, moist mucous membranes CARDIOVASCULAR: Regular rate and rhythm without murmurs, rubs or gallops. RESPIRATORY: Breath sounds equal bilaterally, no wheezes rales or rhonchi. ABDOMEN: Soft, nontender. Normoactive bowel sounds all 4 quadrants. No guarding or rebound. Mild suprapubic pain no guarding no rebound EXTREMITIES: Normal range of motion, no clubbing or edema. Neurovascularly intact NEUROLOGICAL: Alert and oriented x4.Normal gait and speech. Cranial nerves II through XII grossly intact. SKIN: Warm, dry, no laceration, no petechiae, no rashes or lesions. Course Orders Ordered: Discontinued Medications Hydrocodone Bitart/Acetaminophen (Hydrocodone/Acet 5/325 Prepack) 1 bottle MISC SEEINSTR ONE Stop: 03/14/21 21:52 Last Admin: 03/14/21 22:06 Dose: 1 bottle Documented by: KGSAMRA Sodium Chloride (Normal Saline 0.9%) 1,000 mls @ 1,000 mls/hr IV BOLUS ONE Stop: 03/14/21 21:47 Last Infusion: 03/14/21 22:35 Dose: 0 mls/hr Documented by: Admin: 03/14/21 21:15 Dose: 1,000 mls/hr Documented by: JIMMIE Ketorolac Tromethamine (Ketorolac 30 Mg/Ml Vial) 15 mg IV NOW ONE Stop: 03/14/21 20:29 Last Admin: 03/14/21 21:15 Dose: Not Given Documented by: JIMMIE Medroxyprogesterone Acetate (Medroxyprogesterone Acetate 10 Mg Tablet) 20 mg PO NOW ONE Stop: 03/14/21 21:52 Last Admin: 03/14/21 22:28 Dose: 20 mg Documented by: JIMMIE Morphine Sulfate (Morphine 2 Mg/Ml Inj) 2 mg IV NOW ONE Stop: 03/14/21 21:21 Last Admin: 03/14/21 21:41 Dose: 2 mg Documented by: JIMMIE Ondansetron HCl (Ondansetron 4 Mg/2 Ml Inj) 4 mg IV NOW ONE Stop: 03/14/21 21:44 Last Admin: 03/14/21 21:45 Dose: 4 mg Documented by: JIMMIE Vital Signs Vital signs: Vital Signs - 8 hr 03/14/21 19:30 Temperature 98.5 F Pulse Rate 72 Respiratory Rate 18 Blood Pressure 160/93 H Pulse Oximetry 99 MDM - Female Genitourinary Lab Data Attestation: I reviewed the patient's lab results. Result diagrams: 03/14/21 19:41 03/14/21 19:41 Labs: Lab Results 03/14/21 03/14/21 03/14/21 Range/Units 19:41 19:41 19:41 WBC 8.5 (4.5-11.0) X10^3/uL RBC 4.04 (4.0-5.2) X10^6/uL Hgb 13.2 (12.0-16.0) g/dL Hct 37.9 (36-46) % MCV 93.8 (80-100) fL MCH 32.7 (26-34) PG MCHC 34.9 (30-36) % RDW 12.1 (11.6-14.8) % Plt Count 125 L (150-400) X10^3/uL Neut % (Auto) 46.4 L (50-75) % Lymph % (Auto) 39.9 (25-40) % [place] % (Auto) 6.9 (3-14) % Eos % (Auto) 5.6 H (2-4) % Baso % (Auto) 1.2 (0-2) % Neut # (Auto) 4000 (6877-6532) /uL Lymph # (Auto) 3400 (8607-9272) /uL [place] # (Auto) 600 (0-900) /uL Eos # (Auto) 500 H (0-450) /uL Baso # (Auto) 100 (0-100) /uL RBC Morphology Normal morphology Sodium 138 (137-145) mmol/L Potassium 4.0 (3.4-5.1) mmol/L Chloride 105 (98-107) mmol/L Carbon Dioxide 26 (22-32) mmol/L BUN 22 H (7-17) mg/dL Creatinine 0.73 (0.52-1.04) mg/dL Estimated GFR > 60.0 (>60) mL/min BUN/Creatinine Ratio 30.1 H (6-22) Glucose 85 (70-100) mg/dL Calcium 9.5 (8.4-10.2) mg/dL Total Bilirubin 0.2 (0.2-1.3) mg/dL AST 24 (14-36) IU/L ALT 11 (<35) IU/L Alkaline Phosphatase 45 (38-126) U/L Total Protein 6.9 (6.3-8.2) g/dL Albumin 4.0 (3.5-5.0) g/dL Globulin 2.9 (1.7-4.1) g/dL Albumin/Globulin Ratio 1.4 (1.0-2.8) Serum , Qual Negative (Negative) Imaging Data US - [employer]INE [employer]OM[employer] 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 Additional endovaginal scanning was necessary due to incomplete visualization of the adnexal and endometrial structures by transabdominal scanning. COMPARISON: [facility], US, US PELVIC COMPLETE WITH TRANSVAGINAL, 01/10/2020, 12:24. FINDINGS: Uterus: Uterus is normal in size at 9.6 x 4.9 x 5.7 cm. The endometrium measures 12.1 mm in combined thickness. Uterus has normal echotexture. Ovaries: Right ovary measures 3.2 x 2.0 x 2.6 centimeters. There is a 1.8 x 1.7 x 1.8 centimeter simple appearing cyst in the right ovary. Left ovary measures 1.9 x 1.4 x 1.7 centimeters. Left ovary is sonographically normal. Doppler evaluation demonstrates normal vascular flow in the ovaries. Other: No pathologic free abdominal or pelvic fluid. IMPRESSION: 1. Uterus is sonographically normal. 2. 1.8 x 1.7 x 1.8 centimeter simple right ovarian cyst. 3. Left ovary is sonographically normal. Dictated by: Jalyn Iyer MD, PhD on 03/14/2021 at 21:26 Approved by: Jalyn Iyer MD, PhD on 03/14/2021 at 21:28 [facility] Narrative Medical decision making narrative: At this time patient is hemodynamically stable with normal hemoglobin and hematocrit. No evidence of significant blood loss. Will start her on Provera and recommend that she follow up with office helper clerical. Discharge Plan Departure Patient Disposition: Home Clinical Impression: Vaginal bleeding Instructions: DI for Vaginal Bleeding Activity Restrictions/Additional Instructions: *You have been diagnosed with vaginal bleeding *What to do: At this time please follow-up with office helper clerical in regards to vaginal bleeding *Continue to take medications as directed Take Provera 2 tablets every 4 hours for 48 hours, 2 tablets every 6 hours for 48 hours, take 2 tablets is 3 8 hours for 48 hours, take 2 tablets every 12 hours for 48 hours then take 2 tablets for 7 days [place] 1 tablet every 6 hours if needed for severe pain Motrin 800 mg every 8 hours if needed for [id number] pain *Follow up with your primary care provider in 2-3 days *Return to ER if you should have persistent bleeding despite medication, increasing pain, dizziness lightheadedness or passing out or any new, worsening or concerning symptoms Prescriptions: New medroxyprogesterone 10 mg tablet 10 mg PO DAILY Qty: 90 RF: 0 No Action hydrocodone-acetaminophen [[place]] 5-325 mg tablet 1 tab PO Q6H PRN (Reason: pain) Qty: 5 RF: 0 tizanidine 4 mg tablet 8 - 12 mg PO BEDTIME RF: 0 benzonatate 200 mg capsule 200 mg PO TID RF: 0 promethazine [Promethegan] 25 mg suppository VA RF: 0 amitriptyline 50 mg tablet 50 mg PO BEDTIME RF: 0 tolterodine 2 mg tablet RF: 0 promethazine 25 mg tablet RF: 0 gabapentin 300 mg capsule 600 mg PO BEDTIME RF: 0 zolpidem 5 mg tablet 5 mg PO BEDTIME RF: 0 albuterol sulfate [ProAir HFA] 90 mcg/actuation HFA aerosol inhaler INHALATION RF: 0 propranolol 20 mg tablet 20 mg PO QID RF: 0 oxycodone 5 mg tablet RF: 0 Ajovy Syringe 225 mg/1.5 mL syringe 0 mg SUBCUT QMONTH RF: 0 Referrals: Manuela Bear MD [Physician] - Kaila Navarrete MD [Physician] - Denisa Gilman MD [Physician] - Love [employer] ARNP [Primary Care Provider] -
[2021-03-14] MEDS: SODIUM CHLORIDE 0.9% 1,000 ML 1000 ML IV (21:15)
[2021-03-14] MEDS: MORPHINE 2 MG/ML INJ IV (21:41)
[2021-03-14] MEDS: ONDANSETRON 4 MG/2 ML INJ IV (21:45)
[2021-03-14] MEDS: HYDROCODONE/ACET 5/325 PREPACK 1 BOTTLE MISC (22:06)
[2021-03-14] MEDS: MEDROXYPROGESTERONE ACETATE 10 MG TABLET 20 MG PO (22:28)
[2021-03-14 22:36] VITALS: BP 139/66; PULSE 78; RESP 18; O2SAT 99
== END 2021-03-14 22:30 | disposition home or self-care (01) ==
PROVIDERS: Emergency Provider Emergency Medicine; PCP Nurse Practitioner Family
DX: N93.9 Abnormal uterine and vaginal bleeding, unspecified (principal)
CPT/HCPCS: 36415; 76830; 76856; 80053; 84703; 85025; 96361; 96374; 96375; 99284; J2270; J2405

== ENCOUNTER → 2023-03-20 14:31 | Outpatient (CLI) | payer OTHER, SELFPAY ==
--- NOTE | 2023-03-20 | DI.US.S_ITS ---
PROCEDURE: US PELVIC COMPLETE INDICATIONS: Irregular menstruation TECHNIQUE: Real-time scanning was performed of the pelvic organs, with image documentation. Additional endovaginal scanning was necessary due to incomplete visualization of the adnexal and endometrial structures by transabdominal scanning. COMPARISON: [facility], US, US PELVIC COMPLETE, 05/10/2021, 14:44. FINDINGS: Uterus: Uterus is anteverted and normal in size at 9.4 x 5.1 x 4.5 cm. The myometrium is heterogeneous. The endometrium measures 6 mm combined thickness. Ovaries: The right ovary measures 2.9 x 1.5 x 1.2 cm, with a calculated ovarian volume of 3 cc. The left ovary measures 3.3 x 1.2 x 1.2 cm, with a calculated ovarian volume of 2.5 cc. The ovaries have a normal sonographic appearance. Less than 12 follicles can be seen in each ovary. No adnexal masses are seen. Other: No pathologic free abdominal or pelvic fluid. Prominent left adnexal vasculature. IMPRESSION: No findings to explain the patient's irregular menstruation. Prominent left adnexal vasculature, which can be seen in the clinical setting of pelvic congestion syndrome. We strive to produce accurate, complete, and clear reports of imaging services. To assist us in improving patient care, this report was composed using standard report templates and voice recognition software. Therefore, it may contain abnormal punctuation, insertions and/or omissions. Occasional wrong-word or sound-alike substitutions may occur. Though we review the report and make efforts to correct it, we do recommend that the report be read carefully in proper context to recognize any text inaccuracies. Dictated by: Srinath Napier M.D. on 03/21/2023 at 9:21 Approved by: Srinath Napier M.D. on 03/21/2023 at 9:22
--- NOTE | 2023-03-20 | DI.MG.S_ITS ---
BILATERAL DIGITAL SCREENING MAMMOGRAM 3D/2D WITH CAD: 03/20/2023 CLINICAL: Routine screening. Baseline exam. No prior exams were available for comparison. Both breasts are heterogeneously dense, which may obscure small masses (category c / 51-75% glandular tissue). Current study was also evaluated with a Computer Aided Detection (CAD) system. There is an oval asymmetry in the left breast middle depth superior region seen on the mediolateral oblique view only. Multiple benign oval circumscribed masses are present in both breasts. No other significant masses, calcifications, or other findings are seen in either breast. IMPRESSION: INCOMPLETE: NEEDS ADDITIONAL IMAGING EVALUATION The oval asymmetry in the left breast is indeterminate. Additional views with possible ultrasound are recommended. Based on the Tyrer Cuzick model (a risk assessment model) the patient's lifetime risk is 12.6% and her 10 year risk is 2.0%. According to the ACR, ACS, and NCCN guidelines, an annual breast MRI exam along with mammogram is recommended if the patient's lifetime risk is 20% or greater. This exam was interpreted at Station ID: [id number]. NOTE: For mammograms, a report in lay terms will be sent to the patient. Approximately 15% of breast malignancies will not be visualized mammographically. In the management of a palpable breast mass, a negative mammogram must not discourage biopsy of a clinically suspicious lesion. Electronically Signed By: Al Montalvo M.D. lc/:03/20/2023 16:15:20 letter sent: Additional Imaging Needed ACR BI-RADS Category 0: Incomplete [id number]
== END ==
PROVIDERS: PCP Nurse Practitioner Family; Referring Provider Nurse Practitioner Family; Visit Provider Nurse Practitioner Family
DX: N92.6 Irregular menstruation, unspecified (principal); Z12.31 Encounter for screening mammogram for malignant neoplasm of breast
CPT/HCPCS: 76830; 76856; 77063; 77067

== ENCOUNTER 2023-06-07 16:11 | Emergency (ER) | payer OTHER, SELFPAY ==
[2023-06-07] VITALS (10 sets, daily range): BP systolic 123–136; BP diastolic 70–89; PULSE 69–88; RESP 16–18; TEMP 37.1; O2SAT 97–100
[2023-06-07 16:57] LABS: Add Manual Diff / Slide Review NO; Basophils Absolute Auto 100 /uL (0-100); Basophils Percent Auto 0.8 % (0-2); Eosinophils Absolute Auto 200 /uL (0-450); Eosinophils Percent Auto 1.8 % (2-4); Hemoglobin 12.9 g/dL (12.0-16.0); Lymphocytes Absolute Auto 2500 /uL (1100-4500); Lymphocytes Percent Auto 25.3 % (25-40); Mean Corpuscular HGB Conc 34.9 % (30-36); Mean Corpuscular Hemoglobin 31.1 PG (26-34); Mean Corpuscular Volume 89.2 fL (80-100); Monocytes Absolute Auto 700 /uL (0-900); Neutrophils Absolute Auto 6400 /uL (1500-7000); Neutrophils Percent Auto 65.1 % (50-75); Platelet Count 453 X10^3/uL (150-400); Red Blood Cell Count 4.15 X10^6/uL (4.0-5.2); Red Cell Distribution Width 12.8 % (11.6-14.8); White Blood Cell Count 9.9 X10^3/uL (4.5-11.0)
[2023-06-07 17:09] LABS: Alanine Aminotransferase 26 IU/L (<35); Albumin 4.4 g/dL (3.5-5.0); Albumin Globulin Ratio 1.5 (1.0-2.8); Alkaline Phosphatase 49 U/L (38-126); Aspartate Aminotransferase 24 IU/L (14-36); BUN Creatinine Ratio 13.4 (6-22); Bilirubin Total 0.3 mg/dL (0.2-1.3); Blood Urea Nitrogen 11 mg/dL (7-17); Calcium 9.2 mg/dL (8.4-10.2); Carbon Dioxide 26 mmol/L (22-32); Chloride 99 mmol/L (98-107); Estimated Glomerular Filt Rate > 60 mL/min (>60); Glucose 100 mg/dL (70-100); HEMOLYSIS < 15 (0-50); Lipase 191 U/L (23-300); Potassium 3.8 mmol/L (3.4-5.1); Sodium 132 mmol/L (137-145); Total Protein 7.4 g/dL (6.3-8.2)
--- NOTE | 2023-06-07 18:59 | ED_ITS ---
HPI - General Adult General Chief complaint: Abdominal Pain Stated complaint: ABD pain Time Seen by Provider: 06/07/23 18:09 Source: patient Mode of arrival: Ambulatory Limitations: no limitations History of Present Illness HPI narrative: Patient is a 42-year-old female who is here for evaluation for proximally 1 week of upper abdominal pain. She states the pain is there consistently but there are periods of time when it was worse than others. Some nausea but no vomiting. No change in bowel habits. No urinary symptoms. Urinating or bowel movements do not change the pain at all. She is not having any back pain. No prior abdominal surgeries. No skin changes. Has not tried anything for the symptoms prior to arrival. Related Data Home Medications Medication Instructions Recorded Confirmed fremanezumab-vfrm 225 mg/1.5 mL 0 mg SUBCUT QMONTH 11/21/19 05/10/21 subcutaneous syringe (Ajovy Syringe) gabapentin 300 mg capsule 600 mg PO BEDTIME 11/21/19 05/10/21 tizanidine 4 mg tablet 8 - 12 mg PO BEDTIME 11/21/19 05/10/21 zolpidem 5 mg tablet 5 mg PO BEDTIME 11/21/19 05/10/21 clonazepam 1 mg tablet 1 mg PO DAILY 05/10/21 05/10/21 ondansetron 8 mg disintegrating 8 mg PO Q8H 05/10/21 05/10/21 tablet propranolol 20 mg tablet 40 mg PO TID 05/10/21 05/10/21 Previous Rx's Medication Instructions Recorded ondansetron 4 mg disintegrating 4 mg PO Q6H PRN nausea and 06/07/23 tablet vomiting #14 tabs sucralfate 100 mg/mL oral 10 ml PO QACHS #414 mL 06/07/23 suspension (Carafate) tramadol 50 mg tablet 50 mg PO Q8H PRN pain #6 tabs 06/07/23 Allergies Allergy/AdvReac Type Severity Reaction Status Date / Time NSAIDS (Non-Steroidal AdvReac Mild Verified 03/15/23 08:50 Anti-Inflamma Review of Systems Constitutional Constitutional: Reports system reviewed and no additional complaints, except as documented Cardiovascular Cardiovascular: Reports system reviewed and no additional complaints, except as documented Respiratory Respiratory: Reports system reviewed and no additional complaints, except as documented Gastrointestinal Gastrointestinal: Reports system reviewed and no additional complaints, except as documented Genitourinary Genitourinary: Reports system reviewed and no additional complaints, except as documented Integumentary/Breasts Skin/Breast: Reports system reviewed and no additional complaints, except as documented Hematologic/Lymphatic On Anticoagulants: No Patient History Medical History Migraines Patient denies medical problems Social History marital status: details: Lives on [place] household members: spouse and children Smoking Status: Former smoker alcohol intake: current substance use type: marijuana Smoking Status: Former smoker alcohol intake frequency: other Substance Use Type: does not use Exam Initial Vital Signs Initial Vital Signs: Vital Signs Temperature 98.8 F 06/07/23 16:26 Pulse Rate 88 06/07/23 16:26 Respiratory Rate 18 06/07/23 16:26 Blood Pressure 123/70 06/07/23 16:26 Pulse Oximetry 100 06/07/23 16:26 Oxygen Delivery Method Room Air 06/07/23 16:26 Const General: cooperative, comfortable and No ill appearing HENCO Head: normal to inspection and normocephalic Resp Effort & Inspection: normal respiratory effort GI Inspection: normal to inspection and non-distended Palpation: soft, No firm, No guarding and tender (Epigastric region) Back/Spine/Pelvis Back: No CVA tenderness Skin General: no rashes or lesions noted Extrem General: normal to inspection and capillary refill normal Course Orders Ordered: ED Orders 06/07/23 16:45 Complete Blood Count AUTO DIFF Stat Comprehensive Metabolic Panel Stat Lipase Stat 06/07/23 19:00 CT abdomen pelvis w con Stat Discontinued Medications Hydrocodone Bitart/Acetaminophen (Hydrocodone/Acet 5/325 Tablet) 1 tab PO NOW ONE Stop: 06/07/23 19:02 Last Admin: 06/07/23 19:11 Dose: 1 tab Documented By: LEISA Ondansetron HCl (Ondansetron 4 Mg Odt) 4 mg PO NOW PRN PRN Reason: Nausea And Vomiting Ondansetron HCl (Ondansetron 4 Mg/2 Ml Inj) 4 mg IV NOW PRN PRN Reason: Nausea And Vomiting Last Admin: 06/07/23 19:12 Dose: 4 mg Documented By: LEISA Vital Signs Vital signs: Vital Signs - 8 hr 06/07/23 16:26 06/07/23 17:20 06/07/23 17:20 Temperature 98.8 F Pulse Rate 88 83 Respiratory Rate 18 Blood Pressure 123/70 134/89 Pulse Oximetry 100 97 Oxygen Delivery Method Room Air 06/07/23 17:30 06/07/23 17:30 06/07/23 18:02 Temperature Pulse Rate 78 87 Respiratory Rate Blood Pressure 136/80 Pulse Oximetry 97 100 Oxygen Delivery Method 06/07/23 18:30 06/07/23 19:00 06/07/23 19:15 Temperature Pulse Rate 75 69 78 Respiratory Rate Blood Pressure Pulse Oximetry 98 99 99 Oxygen Delivery Method 06/07/23 19:15 06/07/23 19:30 06/07/23 20:19 Temperature Pulse Rate 71 76 Respiratory Rate Blood Pressure 130/79 Pulse Oximetry 99 98 Oxygen Delivery Method 06/07/23 20:20 06/07/23 20:20 Temperature Pulse Rate 80 Respiratory Rate 16 Blood Pressure 125/72 Pulse Oximetry 99 Oxygen Delivery Method Medical Decision Making Lab Data Lab results reviewed: Yes I reviewed the patient's lab results. 06/07/23 16:45 06/07/23 16:45 Labs: Lab Results 06/07/23 06/07/23 Range/Units 16:45 16:45 WBC 9.9 (4.5-11.0) X10^3/uL RBC 4.15 (4.0-5.2) X10^6/uL Hgb 12.9 (12.0-16.0) g/dL Hct 37.0 (36-46) % MCV 89.2 (80-100) fL MCH 31.1 (26-34) PG MCHC 34.9 (30-36) % RDW 12.8 (11.6-14.8) % Plt Count 453 H (150-400) X10^3/uL Neut % (Auto) 65.1 (50-75) % Lymph % (Auto) 25.3 (25-40) % [place] % (Auto) 7.0 (3-14) % Eos % (Auto) 1.8 L (2-4) % Baso % (Auto) 0.8 (0-2) % Neut # (Auto) 6400 (9819-0781) /uL Lymph # (Auto) 2500 (0666-4608) /uL [place] # (Auto) 700 (0-900) /uL Eos # (Auto) 200 (0-450) /uL Baso # (Auto) 100 (0-100) /uL Sodium 132 L (137-145) mmol/L Potassium 3.8 (3.4-5.1) mmol/L Chloride 99 (98-107) mmol/L Carbon Dioxide 26 (22-32) mmol/L BUN 11 (7-17) mg/dL Creatinine 0.82 (0.52-1.04) mg/dL Estimated GFR > 60 (>60) mL/min BUN/Creatinine Ratio 13.4 (6-22) Glucose 100 (70-100) mg/dL Calcium 9.2 (8.4-10.2) mg/dL Total Bilirubin 0.3 (0.2-1.3) mg/dL AST 24 (14-36) IU/L ALT 26 (<35) IU/L Alkaline Phosphatase 49 (38-126) U/L Total Protein 7.4 (6.3-8.2) g/dL Albumin 4.4 (3.5-5.0) g/dL Globulin 3.0 (1.7-4.1) g/dL Albumin/Globulin Ratio 1.5 (1.0-2.8) Lipase 191 (23-300) U/L Point of Care Testing Test Results Negative Urine Dip Bedside Urine Glucose Negative Bedside Urine Bilirubin - Negative Bedside Urine Ketone - Negative Urine Specific [place] 1.000 Bedside Urine Occult Blood - Negative Bedside Urine pH 6.0 Bedside Urine Protein - Negative Bedside Urine Urobilinogen - Negative Bedside Urine Nitrite - Negative Bedside Urine Leukocytes - Negative Esterase Point of care testing: Point of Care Testing Test Results Negative Urine Dip Bedside Urine Glucose Negative Bedside Urine Bilirubin - Negative Bedside Urine Ketone - Negative Urine Specific [place] 1.000 Bedside Urine Occult Blood - Negative Bedside Urine pH 6.0 Bedside Urine Protein - Negative Bedside Urine Urobilinogen - Negative Bedside Urine Nitrite - Negative Bedside Urine Leukocytes - Negative Esterase Imaging Data CT scan - abdomen/pelvis: Radiologist's Impression: PROCEDURE:? CT ABDOMEN PELVIS W CON ? INDICATIONS:? Sharp generalized abdominal pain ? TECHNIQUE:? After the administration of intravenous contrast, axial sections acquired from the lung bases to the pubic symphysis.? Coronal and sagittal reformats were performed.? For radiation dose reduction, the following was used:? automated exposure control, adjustment of mA and/or kV according to patient size.? ? COMPARISON:? [facility], CT, CT ABDOMEN PELVIS W CON, 06/24/2019, 20:53. ? FINDINGS:? Image quality:? Excellent.? ? Lung bases:? Unremarkable. Heart:? No significant findings. ? ABDOMEN: Liver:? Unremarkable.? ? Gallbladder:? Unremarkable.? ? Biliary ducts:? Unremarkable.? ? Pancreas:? Unremarkable.? ? Spleen:? Unremarkable.? ? Adrenal Glands:? Unremarkable.? ? Kidneys and Ureters:? Unremarkable.? ? ? Stomach and Bowel:? Stomach, small bowel loops, and colon are unremarkable.? The appendix is not visualized; however there is no discrete right lower quadrant fluid or fat stranding to suggest acute appendicitis. Peritoneum:? No abnormal intraperitoneal fluid.? No free air.? ? Ventral Wall: ? No hernias.? Abdominal Nodes:? No retroperitoneal or mesenteric adenopathy by size criteria.? Vessels:? Aorta and inferior vena cava are normal in size.? ? PELVIS: Pelvic Organs:? Unremarkable.? ? Bladder:? Unremarkable.? ? Pelvic Nodes: No enlarged lymph nodes.? Miscellaneous: No hernias are seen. ? ? ? Bones:? Unremarkable.? IMPRESSION:? ? 1. Acute intra-abdominal findings.? The appendix is not visualized; however there are no ancillary findings to suggest acute appendicitis. MDM Narrative Medical decision making narrative: Labs are unremarkable. Does have a benign exam but does have some tenderness in the epigastric region. LFTs and lipase are unremarkable. CT scan shows no acute pathology. No signs of appendicitis or bowel obstruction. Had a discussion with the patient regarding her symptoms. We discussed the lack of a definitive diagnosis however does not appear to be an emergent/ infectious/surgical issue. We discussed starting on a reflux medication/gastric ulcer medication. Patient stated that she thought that she was going to try this anyways. We will have her follow-up with her primary doctor. She was given return precautions. She expressed understanding and agreement. Discharge Plan Departure Patient Disposition: Home Clinical Impression: Abdominal pain Instructions: DI for Abdominal Pain-Adult Activity Restrictions/Additional Instructions: Prescriptions for medications were sent to the [facility]. One of the medications (Carafate) can be useful for stomach ulcers. You can take this for the next 7-10 days as directed. If you can not get this medication other [id number] medications such as famotidine/Pepcid can be helpful as well. Return to the emergency department for new or worsening symptoms. Prescriptions: New sucralfate [Carafate] 100 mg/mL suspension 10 ml PO QACHS Qty: 414 0RF ondansetron 4 mg tablet,disintegrating 4 mg PO Q6H PRN (Reason: nausea and vomiting) Qty: 14 0RF tramadol 50 mg tablet 50 mg PO Q8H PRN (Reason: pain) Qty: 6 0RF No Action clonazepam 1 mg tablet 1 mg PO DAILY ondansetron 8 mg tablet,disintegrating 8 mg PO Q8H tizanidine 4 mg tablet 8 - 12 mg PO BEDTIME Patient Comments: TK 2 TO 3 TS PO AT BED gabapentin 300 mg capsule 600 mg PO BEDTIME Patient Comments: TAKE 2 CAPSULES BY MOUTH AT BEDTIME zolpidem 5 mg tablet 5 mg PO BEDTIME Ajovy Syringe 225 mg/1.5 mL syringe 0 mg SUBCUT QMONTH propranolol 20 mg tablet 40 mg PO TID Patient Comments: TK 1 T PO QID Referrals: Marsha Anderson MD [Primary Care Provider] - Stand Alone Forms: Patient Portal/API
--- NOTE | 2023-06-07 19:00 | DI.CT.S_ITS ---
PROCEDURE: CT ABDOMEN PELVIS W CON INDICATIONS: Sharp generalized abdominal pain TECHNIQUE: After the administration of intravenous contrast, axial sections acquired from the lung bases to the pubic symphysis. Coronal and sagittal reformats were performed. For radiation dose reduction, the following was used: automated exposure control, adjustment of mA and/or kV according to patient size. COMPARISON: [facility], CT, CT ABDOMEN PELVIS W CON, 06/24/2019, 20:53. FINDINGS: Image quality: Excellent. Lung bases: Unremarkable. Heart: No significant findings. ABDOMEN: Liver: Unremarkable. Gallbladder: Unremarkable. Biliary ducts: Unremarkable. Pancreas: Unremarkable. Spleen: Unremarkable. Adrenal Glands: Unremarkable. Kidneys and Ureters: Unremarkable. Stomach and Bowel: Stomach, small bowel loops, and colon are unremarkable. The appendix is not visualized; however there is no discrete right lower quadrant fluid or fat stranding to suggest acute appendicitis. Peritoneum: No abnormal intraperitoneal fluid. No free air. Ventral Wall: No hernias. Abdominal Nodes: No retroperitoneal or mesenteric adenopathy by size criteria. Vessels: Aorta and inferior vena cava are normal in size. PELVIS: Pelvic Organs: Unremarkable. Bladder: Unremarkable. Pelvic Nodes: No enlarged lymph nodes. Miscellaneous: No hernias are seen. Bones: Unremarkable. IMPRESSION: 1. Acute intra-abdominal findings. The appendix is not visualized; however there are no ancillary findings to suggest acute appendicitis. Dictated by: Alesia Jackson M.D. on 06/07/2023 at 19:52 Approved by: Alesia Jackson M.D. on 06/07/2023 at 19:58
[2023-06-07] MEDS: HYDROCODONE/ACET 5/325 TABLET 1 TAB PO (19:11)
[2023-06-07] MEDS: ONDANSETRON 4 MG/2 ML INJ IV (19:12)
--- NOTE | 2023-06-08 09:40 | PC.NURSE ---
Received phone call from [facility] requesting medication being changed from liquid to tablets for insurance coverage. Dr. Lane approved.
== END 2023-06-07 20:20 | disposition home or self-care (01) ==
PROVIDERS: Emergency Medicine; Emergency Provider Emergency Medicine; PCP Family Medicine
DX: R10.13 Epigastric pain (principal)
CPT/HCPCS: 36415; 74177; 80053; 81003; 81025; 83690; 85025; 96374; 99284; J2405; Q9967